=== PATIENT | female | born 1950 | race Caucasian/White ===

== ENCOUNTER → 2019-03-13 09:27 | Outpatient (CLI) | payer MEDICARE, OTHER, SELFPAY ==
--- NOTE | 2019-03-13 10:00 | RAD_ITS ---
STUDY: AIR CONTRAST UPPER GI SERIES REASON FOR EXAM: Female, 68 years old. Dysphagia. FLUOROSCOPY TIME (if supplied): (1:01) minutes/seconds TECHNIQUE: SINGLE CONTRAST AND AIR CONTRAST FLUOROSCOPIC IMAGES. COMPARISON: None. FINDINGS: The cervical esophagus demonstrates normal motility without aspiration. There is no stricture or extrinsic mass effect. No intraluminal polypoid mass is identified. The thoracic esophagus distends well without stricture or mucosal fold thickening. No mucosal ulcerations are identified. There is no extrinsic mass effect. There are no diverticula. No hiatal hernia or gastroesophageal reflux was identified. The stomach distends well without mucosal fold thickening or mucosal ulceration. There is no intraluminal mass. The duodenal bulb is freely distensible without deformity or ulceration. The duodenal sweep is normal in position and caliber. RAD/Upper GI w/BA Swallow IMPRESSION: Normal air-contrast upper GI series. Electronically Signed: Bennie Stern, at 9:21 EDT , Service support ,
== END ==
PROVIDERS: Family Provider Family Medicine; PCP Family Medicine; Referring Provider Family Medicine; Visit Provider Family Medicine
DX: R13.10 Dysphagia, unspecified (principal)
CPT/HCPCS: 74246

== ENCOUNTER → 2019-03-14 11:25 | Outpatient (CLI) | payer MEDICARE, OTHER, SELFPAY ==
[2019-03-14 12:46] LABS: Absolute Lymphocyte Count 1.38 X10^3/ul (0.83-4.51); Basophil# 0.02 X10^3/uL; Basophil% 0.4 % (0-1); Eosinophil# 0.23 X10^3/uL; Eosinophils% 4.4 % (0-5); Hematocrit 48.4 % (37-47); Hemoglobin 16.4 g/dl (12.0-15.0); Lymphocyte # 1.38 X10^3/ul (4.0); Lymphocyte % 26.4 % (19-41); Mean Corp Hgb Conc 33.9 g/gl (32-36); Mean Corpuscular Hgb 28.9 pg (27.0-32.0); Mean Corpuscular Volume 85.2 fL (81-99); Mean Platelet Vol. 10.2 fl (6.2-12.0); Monocyte# 0.63 X10^3/uL; Neutrophil # 2.96 X10^3/uL (2.7-7.7); Neutrophil % 56.6 % (47-70); Platelet Count 235 K/mm3 (150-450); RBC Distribution Width CV 14.8 % (11.6-14.6); Red Blood Count 5.68 M/mm3 (4.2-5.4); White Blood Count 5.2 K/mm3 (4.4-11.0)
[2019-03-14 12:58] LABS: POSITIVE COUNT NO; POSITIVE DIFFERENTIAL NO; POSITIVE MORPHOLOGY NO
[2019-03-14 13:14] LABS: AST(SGOT) 19 U/L (15-37); Alanine Aminotransfer ALT/SGPT 29 U/L (13-56); Albumin, Serum 3.4 g/dL (3.2-5.0); Alkaline Phosphatase 52 U/L (45-117); Anion Gap 3 (5-15); BUN 25 mg/dL (7-18); BUN/Creat Ratio 31.2 RATIO (10-20); Calcium,Total 8.6 mg/dL (8.5-10.1); Chloride 101 mmol/L (98-107); Cholesterol 164 mg/dL (200); EST Glomerular Filtration Rate 76 mL/min (>60); Est Glom Filt Rate - Afr Amer 92 mL/min (>60); Globulin 3.5 g/dL (2.2-4.2); Glucose 84 mg/dL (74-106); High Density Lipoprotein 38 mg/dL; Potassium 3.7 mmol/L (3.5-5.1); Protein, Total 6.9 g/dL (6.4-8.2); Sodium Level 136 mmol/L (136-145); Triglycerides 57 mg/dL; Very Low Density Lipoprotein 11 mg/dL (5-40)
== END ==
PROVIDERS: Family Provider Family Medicine; PCP Family Medicine; Visit Provider Family Medicine
DX: I10 Essential (primary) hypertension (principal); Z51.81 Encounter for therapeutic drug level monitoring
CPT/HCPCS: 36415; 80053; 80061; 85025

== ENCOUNTER → 2019-04-09 15:42 | Outpatient (CLI) | payer MEDICARE, OTHER, SELFPAY ==
--- NOTE | 2019-04-09 15:46 | BI_ITS ---
MAMMOGRAPHY - BILATERAL SCREENING REASON FOR EXAM: Female, 68 years old. Routine annual screening examination. PERTINENT HISTORY: Non-contributory. TECHNIQUE: Digital bilateral breast jerrell (3D mammographic acquisition) in the CC and MLO projections. 2-D mediolateral oblique (MLO) and craniocaudad (CC) views of both breasts were obtained. CAD: Full Field Digital Mammography with Computer Added Detection was performed. COMPARISON: Comparison is made with prior study dated September 14, 2016 and August 12, 2015. FINDINGS: Breast Composition: There are scattered areas of fibroglandular density. There are no dominant masses or suspicious calcifications. No other significant abnormalities are identified. There has been no significant change since the prior study. BI/SCREEN MAMM (CAD) W/JERRELL BILAT IMPRESSION: Stable bilateral screening mammogram. Yearly follow-up mammogram recommended. (A) ASSESSMENT CATEGORY: BIRADS Category 1: Negative. A letter regarding these results will be sent to the patient by the facility within 30 days. Approximately 10% of breast cancers are not detected by mammography. A normal mammogram should not delay biopsy of a clinically suspicious abnormality. [id number] Electronically Signed: Bennie Stern, at 9:01 EDT , Service support ,
--- NOTE | 2019-04-09 15:51 | BD_ITS ---
STUDY: DUAL ENERGY X-RAY ABSORPTIOMETRY / DXA REASON FOR EXAM: Female, 68 years old. The patient is postmenopausal. Loss of height. TECHNIQUE: Bone Mineral Density (BMD) measurements of lumbar spine and bilateral hips were obtained. COMPARISON: None. FINDINGS: Lumbar Spine (L1-L4): g/cm2 (1.156) / T-score (-0.1) / Z-score (1.5) Findings are suggestive of normal bone density with a low fracture risk. Left Femur Total: g/cm2 (0.936) / T-score (-0.6) / Z-score (0.7) Left Femoral Neck: g/cm2 (0.794) / T-score (-1.8) / Z-score (-0.2) Right Femur Total: g/cm2 (0.894) / T-score (-0.9) / Z-score (0.4) Right Femoral Neck: g/cm2 (0.786) / T-score (-1.8) / Z-score (-0.3) BD/Dexa Bone Density Study IMPRESSION: The patient is considered osteopenic as outlined below according to World Eliseo Organization (WHO) criteria with a moderate fracture risk. Reference Information: The T-score is the number of standard deviations above or below the standard which is normal for young adults at their peak bone mineral density. The World Health Organization (WHO) interprets the T-scores as follows: Above -1 Normal bone density Between -1 and -2.5 Osteopenia Equal to / or below -2.5 Osteoporosis As a practical clinical guideline, osteopenia may be graded as follows: Mild -1 through -1.5 Moderate -1.6 through -2.0 Severe -2.1 through -2.4 The Z-score is the number of standard deviations above or below age-matched controls. A Z-score of less than -1.5 would be considered abnormal. References: 1. NIH Osteoporosis and Related Bone Diseases http://www.osteo.org 2. International Society for Clinical Densitometry http://www.iscd.org 3. National Osteoporosis Foundation http://www.nof.org Electronically Signed: Bennie Stern, at 12:47 EDT , Service support ,
== END ==
PROVIDERS: Family Provider Family Medicine; PCP Family Medicine; Referring Provider Family Medicine; Visit Provider Family Medicine
DX: M81.0 Age-related osteoporosis without current pathological fracture (principal); Z12.31 Encounter for screening mammogram for malignant neoplasm of breast
CPT/HCPCS: 77063; 77067; 77080

== ENCOUNTER → 2020-03-04 11:55 | Outpatient (CLI) | payer MEDICARE, OTHER, SELFPAY ==
--- NOTE | 2020-03-04 12:16 | RAD_ITS ---
STUDY: X-RAY - LEFT SHOULDER REASON FOR EXAM: Female, 69 years old. Nontraumatic worsening shoulder pain. TECHNIQUE: 4 view(s) of the shoulder. COMPARISON: Right shoulder, March 04, 2020. FINDINGS: There is moderate degenerative arthrosis of the glenohumeral articulation. There is minimal widening of the AC joint suggesting a Type I acromioclavicular joint separation. Normal acromion. There is no fracture or destructive osseous pathology. There is demineralization of the humerus and visualized osseous structures. The soft tissue structures are unremarkable. Normal visualized pulmonary apex. RAD/Shoulder min 2 Views IMPRESSION: 1. Arthrosis of the glenohumeral joint. 2. Mild widening of the acromioclavicular joint. Type I AC joint separation versus normal variant. Electronically Signed: Rahul Davis DO at 17:39 EDT Tel [phone], Service support ,
--- NOTE | 2020-03-04 12:16 | RAD_ITS ---
STUDY: X-RAY - RIGHT SHOULDER REASON FOR EXAM: Female, 69 years old. Worsening bilateral shoulder pain without injury. TECHNIQUE: 4 view(s) of the shoulder. COMPARISON: None. FINDINGS: There is moderate degenerative arthrosis of the glenohumeral articulation. Normal acromioclavicular joint. Normal acromion. There is no acute fracture, dislocation or destructive osseous pathology. There is demineralization of the humerus and visualized osseous structures. The soft tissue structures are unremarkable. Normal visualized pulmonary apex. 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 Electronically Signed: Rahul Davis DO at 17:42 EDT Tel [phone], Service support ,
[2020-03-04 15:40] LABS: Absolute Lymphocyte Count 1.26 X10^3/uL (0.83-4.51); Absolute Neutrophil Count 2.6 X10^3/uL (2.0-7.7); Basophil# 0.03 X10^3/uL; Basophil% 0.6 % (0-1); Eosinophil# 0.84 X10^3/uL; Eosinophils% 16.1 % (0-5); Hematocrit 50.3 % (37-47); Hemoglobin 16.3 g/dL (12.0-15.0); Lymphocyte # 1.26 X10^3/ul (4.0); Lymphocyte % 24.2 % (19-41); Mean Corp Hgb Conc 32.4 g/dL (32-36); Mean Corpuscular Hgb 28.5 pg (27.0-32.0); Mean Corpuscular Volume 87.9 fL (81-99); Mean Platelet Vol. 10.4 fl (6.2-12.0); Monocyte# 0.51 X10^3/uL; Monocyte% 9.8 % (0-10); NRBC Flagged by Analyzer 0 % (0-5); Neutrophil # 2.56 X10^3/uL (2.7-7.7); Neutrophil % 49.1 % (47-70); Platelet Count 268 K/mm3 (150-450); RBC Distribution Width SD 49.2 fl (35.1-43.9); Red Blood Count 5.72 M/mm3 (4.2-5.4); White Blood Count 5.2 K/mm3 (4.4-11.0)
[2020-03-04 15:42] LABS: ALB/GLOB Ratio 0.9 RATIO (0.9-2.4); AST(SGOT) 24 U/L (15-37); Alanine Aminotransfer ALT/SGPT 40 U/L (13-56); Albumin, Serum 3.6 g/dL (3.2-5.0); Alkaline Phosphatase 59 U/L (45-117); Anion Gap 4 (5-15); BUN 26 mg/dL (7-18); BUN/Creat Ratio 32.8 RATIO (10-20); Chloride 104 mmol/L (98-107); Cholesterol 178 mg/dL (200); Creatinine, Serum 0.79 mg/dL (0.55-1.02); EST Glomerular Filtration Rate 77 mL/min (>60); Est Glom Filt Rate - Afr Amer 93 mL/min (>60); Globulin 3.9 g/dL (2.2-4.2); Glucose 88 mg/dL (74-106); High Density Lipoprotein 30 mg/dL; Potassium 3.7 mmol/L (3.5-5.1); Protein, Total 7.5 g/dL (6.4-8.2); Sodium Level 139 mmol/L (136-145); Triglycerides 47 mg/dL; Very Low Density Lipoprotein 9 mg/dL (5-40); Vitamin D,25 Hydroxy 43.8 ng/mL
== END ==
PROVIDERS: PCP Family Medicine; Referring Provider Family Medicine; Visit Provider Family Medicine
DX: I10 Essential (primary) hypertension (principal); M25.511 Pain in right shoulder; M25.512 Pain in left shoulder; E55.9 Vitamin D deficiency, unspecified; Z51.81 Encounter for therapeutic drug level monitoring
CPT/HCPCS: 36415; 73030; 80053; 80061; 82306; 85025

== ENCOUNTER → 2020-04-02 14:20 | Outpatient (CLI) | payer MEDICARE, OTHER, SELFPAY ==
[2020-04-02 18:06] LABS: AST(SGOT) 21 U/L (15-37); Alanine Aminotransfer ALT/SGPT 36 U/L (13-56); Albumin, Serum 3.4 g/dL (3.2-5.0); Alkaline Phosphatase 55 U/L (45-117); Bilirubin, Direct 0.18 mg/dL (0.00-0.30); Globulin 3.7 g/dL (2.2-4.2); Protein, Total 7.1 g/dL (6.4-8.2)
== END ==
PROVIDERS: PCP Family Medicine; Visit Provider Family Medicine
DX: Z51.81 Encounter for therapeutic drug level monitoring (principal)
CPT/HCPCS: 36415; 80076

== ENCOUNTER → 2020-07-24 12:53 | Outpatient (CLI) | payer MEDICARE, OTHER, SELFPAY ==
--- NOTE | 2020-07-24 13:17 | BI_ITS ---
MAMMOGRAPHY - BILATERAL SCREENING REASON FOR EXAM: Female, 70 years old. Routine annual screening examination. PERTINENT HISTORY: Non-contributory. TECHNIQUE: Digital bilateral breast jerrell (3D mammographic acquisition) in the CC and MLO projections. 2-D mediolateral oblique (MLO) and craniocaudad (CC) views of both breasts were obtained. CAD: Full Field Digital Mammography with Computer Added Detection was performed. COMPARISON: Comparison is made with prior study dated 04/09/2019 and 09/14/2016. FINDINGS: Breast Composition: There are scattered areas of fibroglandular density. There are no dominant masses or suspicious calcifications. No other significant abnormalities are identified. There has been no significant change since the prior study. BI/SCREEN MAMM (CAD) W/JERRELL BILAT IMPRESSION: Stable bilateral screening mammogram. Yearly follow-up mammogram recommended. (A) ASSESSMENT CATEGORY: BIRADS Category 1: Negative. A letter regarding these results will be sent to the patient by the facility within 30 days. Approximately 10% of breast cancers are not detected by mammography. A normal mammogram should not delay biopsy of a clinically suspicious abnormality. [id number] Electronically Signed: Bennie Stern, at 14:34 EST , Service support ,
== END ==
PROVIDERS: PCP Family Medicine; Referring Provider Family Medicine; Visit Provider Family Medicine
DX: Z12.31 Encounter for screening mammogram for malignant neoplasm of breast (principal)
CPT/HCPCS: 77063; 77067

== ENCOUNTER 2020-10-22 10:20 | Outpatient (RCR) | payer MEDICARE, OTHER, SELFPAY | END 2020-10-22 23:59 | LOC: IMMUN 10:20 | PROVIDERS: PCP Family Medicine; Referring Provider Family Medicine; Visit Provider Family Medicine | DX: Z23 Encounter for immunization (principal) | CPT/HCPCS: 0011A; 0012A ==

== ENCOUNTER 2024-08-31 18:23 | Emergency (ER) | payer MEDICARE, OTHER, SELFPAY ==
[2024-08-31 18:24] VITALS: BP 161/92; PULSE 83; RESP 16; TEMP 36.9; O2SAT 98
--- NOTE | 2024-08-31 20:00 | RAD_ITS ---
EXAM: XR RIGHT KNEE, 3 VIEWS CLINICAL INDICATION: injury TECHNIQUE: Three views of the right knee. COMPARISON: No relevant prior studies available. FINDINGS: BONES/JOINTS: Unremarkable. No acute fracture. No subluxation. Normal alignment. Preservation of the joint space. No sclerotic or destructive changes observed. SOFT TISSUES: Unremarkable. No soft tissue swelling or gas. No radiopaque foreign body. RAD/Knee 3 Views IMPRESSION: Negative right knee x-rays. Electronically Signed: Erick Pitts MD at 22:44 EST ,
--- NOTE | 2024-08-31 23:28 | ED.VIS.LOWEX ---
HPI History of Present Illness HPI Narrative: Patient presents with right knee pain that became worse tonight. Patient states that she had some pain in her knee earlier this week. Patient states she felt something moving in her knee. Patient states it moved back and her pain resolved. Patient states that tonight she bent down to change the qing litter and her pain began again. Patient describes it as burning. Patient states it is over the anterior medial aspect of the right knee. Patient states the pain is worse with movement and weightbearing. Patient denies any paresthesias or weakness. Patient denies any other injuries. Chief Complaint: Lower Extremity Injury Onset/Context/Timing Onset: Today Context: Sudden Onset Timing: Continuous Quality of Pain: Burning Location: Right knee Worsened by: Weightbearing, movement Relieved by: Nothing Associated Symptoms Associated Symptoms: Negative for Parasthesia or Weakness PFSH [facility] Medical History (Updated 08/31/24 @ 23:[address] Arben Hamilton, ) Hereditary angioedema Home Medications ?Medication ?Instructions ?Recorded ?Last Taken ?Type cholecalciferol (vitamin D3) 25 25 mcg PO DAILY 08/31/24 Unknown History mcg (1,000 unit) capsule (Vitamin D3) danazol 100 mg capsule 100 mg PO DAILY 08/31/24 Unknown History hydrochlorothiazide 25 mg tablet 25 mg PO DAILY 08/31/24 Unknown History hydrocodone-acetaminophen 5-325mg 1 tab PO Q6H PRN PRN Pain 3 days 08/31/24 Unknown Rx 5mg-325mg #10 TABLETS multivitamin (Daily Multi-Vitamin 1 tab PO DAILY 08/31/24 Unknown History tablet) Allergy/AdvReac Type Severity Reaction Status Date / Time No Known Allergies Allergy Verified 08/31/24 18:24 Surgical History (Updated 08/31/24 @ 23:[address] Arben Hamilton, ) Hx of endoscopy Hx of tubal ligation Social History Smoking Status: Never smoker ROS ROS ED Constitutional Constitutional ED: Denies chills or fever(s) Eyes Eyes: Denies blurry vision or change in vision ENT ENT ED: Denies rhinorrhea or sore throat Cardiovascular Cardiovascular: Denies chest pain or palpitations Respiratory/Chest Respiratory/Chest: Denies cough or dyspnea Gastrointestinal Gastrointestinal: Denies nausea or vomiting Genitourinary Genitourinary ED: Denies dysuria or hematuria Musculoskeletal Musculoskeletal: Denies back pain or neck pain Integumentary Denies abscess or rash Neurologic Neurologic: Denies headache(s) or weakness Allergic/Immunologic Allergic/Immunologic ED: Denies mouth swelling or urticaria EXAM Physical Exam Const Vital Signs: 08/31/24 18:24 Temperature 98.5 F Temperature Source Oral Pulse Rate 83 Respiratory Rate 16 Blood Pressure 161/92 H Blood Pressure Mean 115 Pulse Ox 98 Oxygen Delivery Method Room Air Positive well nourished and well developed General Appearance ED: well developed and NAD HEENT Reports moist mucous membranes Neck full ROM and supple Extremity Extremity Narrative: There is tenderness over the anterior medial aspect of the right knee. There is no bony crepitance or step-off. There is no effusion noted. Range of motion was slightly limited in all motions of the right knee secondary to pain. There is some mild pain with valgus testing but there is no laxity appreciated. There is some mild pain over the medial joint line of the right knee with Urmila testing. Strength is 5/5 bilaterally in the lower extremities. Extensor mechanism is intact. There are no sensory deficits noted. Pedal pulses are equal bilaterally. Neuro oriented x3, CN's II-XII intact bilaterally, moves all extremities and no sensory deficits noted Sensorium / Orientation: alert Motor Exam: strength 5/5 throughout Psych mental status grossly normal MDM MDM MDM Narrative Medical decision making narrative: Differential diagnose includes fracture, sprain, meniscus injury, and contusion. X-rays of the right knee will be obtained to assess for fracture and joint effusion. Radiography Diagnostic Testing: Clinical Impression(s) from Imaging Studies Knee X-Ray 08/31/24 20:00 IMPRESSION: Negative right knee x-rays. Electronically Signed: Erick Pitts MD at 22:44 EST Reading Location ID and State: [address] [place] [address] Tel , Service support , X-rays of the right knee were obtained. There are 3 views. On my independent interpretation, there is no acute fracture. There is no joint effusion noted. Radiologist also interpreted the x-rays and agrees. Treatment and Re-Evaluation Narrative: Patient was advised of her findings. Patient was given a dose of Gresham here. Patient was given a prescription for a short course of Gresham. Patient was instructed to ice and elevate the right knee. Patient was instructed to use her walker as needed to help with weightbearing. Patient was instructed to follow-up with her primary care physician as scheduled. Patient understood and was agreeable with the plan. All questions were answered. Discharge Plan Triage Chief Complaint: Lower Extremity Injury ED Provider: Arben Hamilton Dx/Rx/DC Orders Clinical Impression: Right knee sprain, Hypertension Instructions: ED Meniscal Injury Knee Poss, ED Knee Sprain Prescriptions: New hydrocodone-acetaminophen 5-325 mg tablet 1 tab PO Q6H PRN PRN (Reason: Pain) 3 Days Qty: 10 0RF No Action danazol 100 mg capsule 100 mg PO DAILY cholecalciferol (vitamin D3) [Vitamin D3] 25 mcg (1,000 unit) capsule 25 mcg PO DAILY multivitamin [Daily Multi-Vitamin] Tablet 1 tab PO DAILY hydrochlorothiazide 25 mg tablet 25 mg PO DAILY Primary Care Provider: Fish Ortiz Referrals: Fish Ortiz, [Primary Care Provider] - Keep [facility] appointment Print Language: Sinhala Disposition Disposition: Home, Self Care
[2024-08-31] MEDS: HYDROcodone Bitartrate/Apap 5/325 Tablet PO (23:47)
[2024-09-01] VITALS: BP 141/79; PULSE 89; RESP 16; TEMP 36.6; O2SAT 99
== END 2024-09-01 00:01 | disposition home or self-care (01) ==
PROVIDERS: Emergency Provider Emergency Medicine; PCP Family Medicine; Visit Provider Emergency Medicine
DX: S83.91XA Sprain of unspecified site of right knee, initial encounter (principal); I10 Essential (primary) hypertension; X58.XXXA Exposure to other specified factors, initial encounter
CPT/HCPCS: 73562; 99283

== ENCOUNTER → 2024-09-24 | Outpatient (CLI) | payer MEDICARE, OTHER, SELFPAY ==
[2024-09-24 17:37] LABS: Absolute Lymphocyte Count 1.33 X10^3/uL (0.83-4.51); Absolute Neutrophil Count 2.5 X10^3/uL (2.0-7.7); Basophil# 0.04 X10^3/uL; Basophil% 0.9 % (0-1); Eosinophil# 0.18 X10^3/uL; Eosinophils% 3.9 % (0-5); Hemoglobin 15.3 g/dL (12.0-15.0); Lymphocyte # 1.33 X10^3/ul (0.83-4.51); Lymphocyte % 28.7 % (19-41); Mean Corp Hgb Conc 32.6 g/dL (32-36); Mean Corpuscular Hgb 28.4 pg (27.0-32.0); Mean Corpuscular Volume 87.4 fL (81-99); Mean Platelet Vol. 9.6 fl (6.2-12.0); Monocyte# 0.55 X10^3/uL; Monocyte% 11.9 % (0-10); NRBC Flagged by Analyzer 0 % (0-5); Neutrophil # 2.52 X10^3/uL (2.7-7.7); Neutrophil % 54.4 % (47-70); Platelet Count 474 K/mm3 (150-450); RBC Distribution Width SD 45.1 fl (35.1-43.9); Red Blood Count 5.38 M/mm3 (4.2-5.4); White Blood Count 4.6 K/mm3 (4.4-11.0)
[2024-09-24 17:51] LABS: Vitamin D,25 Hydroxy 62.4 ng/mL
[2024-09-24 19:01] LABS: ALB/GLOB Ratio 0.7 RATIO (0.9-2.4); AST(SGOT) 23 U/L (15-37); Alanine Aminotransfer ALT/SGPT 39 U/L (13-56); Albumin, Serum 3.1 g/dL (3.2-5.0); Alkaline Phosphatase 51 U/L (45-117); Anion Gap 8 (5-15); BUN 28 mg/dL (7-18); BUN/Creat Ratio 33.9 RATIO (10-20); Calcium,Total 9.6 mg/dL (8.5-10.1); Chloride 102 mmol/L (98-107); Cholesterol 188 mg/dL (200); Creatinine, Serum 0.82 mg/dL (0.55-1.02); EST Glomerular Filtration Rate 72 mL/min (>60); Est Glom Filt Rate - Afr Amer 88 mL/min (>60); Globulin 4.7 g/dL (2.2-4.2); Glucose 91 mg/dL (74-106); High Density Lipoprotein 26 mg/dL; Potassium 3.9 mmol/L (3.5-5.1); Protein, Total 7.8 g/dL (6.4-8.2); Sodium Level 140 mmol/L (136-145); Triglycerides 98 mg/dL; Very Low Density Lipoprotein 20 mg/dL (5-40)
== END | disposition home or self-care (01) ==
LOC: BFHLAB 14:40
PROVIDERS: PCP Family Medicine; Referring Provider Family Medicine; Visit Provider Family Medicine
DX: I10 Essential (primary) hypertension (principal); E55.9 Vitamin D deficiency, unspecified
CPT/HCPCS: 36415; 80053; 80061; 82306; 85025

== ENCOUNTER 2024-10-01 09:04 | Day surgery (SDC) | payer MEDICARE, OTHER, SELFPAY ==
[2024-10-01] VITALS (9 sets, daily range): BP systolic 118–146; BP diastolic 68–96; PULSE 73–88; RESP 14–20; TEMP 36–36.6; O2SAT 94–100; BMI 23.6
[2024-10-01] MEDS: 0.9% Normal Saline (1000mL) 1,000 ML 15 ML IV (09:27)
--- NOTE | 2024-10-01 09:41 | PCM.PRE.AN2 ---
ASA Classification* ASA Classification ASA Classification: 2 Assessment & Plan Anesthesia* Anesthesia Assessment Anesthesia Assessment: Discussed sedation and/or anesthesia options, risks, benefits, and alternatives with patient/parents/legal guardian/POA. Questions invited. The patient/parents/legal guardian/POA seems to understand and agrees to proceed with anesthesia plan. Reviewed the physical assessment, medical history, allergy history and patient home medications list prior to surgery/procedure/anesthetic and documented any changes. Performed airway and anesthesia risk assessments. Anesthesia Type Anesthesia Type: General History Source History Obtained from:: Patient and Chart Anesthesia Focused Assessment* Temperature: 98 F Pulse Rate: 88 Blood Pressure: 126/68 Respiratory Rate: 16 Pulse Ox: 100 Oxygen Delivery Method: Room Air Airway Assessment Mouth opens: >3 cm Mallampati Score: II Teeth Condition: Intact Neck Range of motion (ROM): Limited ROM (Slight decrease in extension) Focused Labs Anesthesia Preop lab: CBC WBC 4.6 K/mm3 (4.4-11.0) 09/24/24 14:40 RBC 5.38 M/mm3 (4.2-5.4) 09/24/24 14:40 Hgb 15.3 g/dL (12.0-15.0) H 09/24/24 14:40 Hct 47.0 % (37-47) 09/24/24 14:40 Plt Count 474 K/mm3 (150-450) H 09/24/24 14:40 CHEMISTRY Potassium 3.9 mmol/L (3.5-5.1) 09/24/24 14:40 Sodium 140 mmol/L (136-145) 09/24/24 14:40 BUN 28 mg/dL (7-18) H 09/24/24 14:40 Creatinine 0.82 mg/dL (0.55-1.02) 09/24/24 14:40 Glucose 91 mg/dL (74-106) 09/24/24 14:40 TSH 2.41 uIU/mL (0.358-3.74) 04/29/17 10:21 COAG Pre-Assessment Diagnosis/Proposed Procedure Planned Operative Procedure(s): (R) Right knee Arthroscopy, partial medial and lateral menisectomy Anesthesia History Anesthesia History - contract analyst: Anesthesia History - contract analyst Hx Hospitalization No 09/24/24 13:11 Any Problems With Anesthesia No 09/24/24 13:11 Cholinesterase deficiency No 09/24/24 13:11 You/Your Family Experience No 09/24/24 13:11 fever (hyperthermia) with Relationship Recent Exposure to Contagious No 10/01/24 09:19 Disease Does patient have nerve No 09/24/24 13:11 stimulator Patient instructed to have device shut off --Does patient have Pacemaker No 10/01/24 09:19 or ICD? When Was Last Pacemaker Check QUESTION #4 FULL TEXT: You/Your Family Experience fever (hyperthermia) with Anesthesia Last Oral Intake Last Oral intake: Last Oral Intake NPO since 00:00 10/01/24 09:19 Meds taken in AM with sips of water? Meds patient instructed to take am of surgery PONV PONV - contract analyst: PONV - contract analyst Female Yes 09/24/24 13:11 HX of Motion Sickness No 09/24/24 13:11 HX of N/V After Surgery No 09/24/24 13:11 Non-Smoker Yes 09/24/24 13:11 Duration of Surgery greater No 09/24/24 13:11 than 60 minutes Number of Risk Factors 2 09/24/24 13:11 PONV Score Moderate Risk 09/24/24 13:11 Height & Weight Height & Weight: Anesthesia: Height & Weight Height 4 ft 11 in 10/01/24 09:19 Weight: 53.07 kg 10/01/24 09:19 Body Mass Index (BMI) 23.6 10/01/24 09:19 Respiratory Assessment Respiratory Assessment - contract analyst: Respiratory Tract Infection Hx - contract analyst Hx Respiratory Tract Infection No 09/24/24 13:11 STOP Sleep Apnea STOP Sleep Apnea - contract analyst: STOP Sleep Apnea - contract analyst Hx Hypertension Yes: CONTROLLED WITH MED 09/24/24 13:11 Hx Sleep Apnea Yes 09/24/24 13:11 CPAP No 09/24/24 13:11 BIPAP Yes: NON COMPLIANT 09/24/24 13:11 Do you snore loudly (louder than talking or can be heard Do you often feel tired/ fatigued/ sleepy during daytime? Has anyone observed you stop breathing during sleep? STOP Results Positive 09/24/24 13:11 QUESTION #5 FULL TEXT : Do you snore loudly (louder than talking or can be heard through closed doors)? 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 Specify any problems Hx of Preganancy in last 3 N/A 09/24/24 13:11 Months Nurse Filling Out Transfusion NBUCHER 09/24/24 13:11 & Questions: Date: 09/24/24 09/24/24 13:11 Time: 13:13 09/24/24 13:11 Patient unable to answer at this time (ie. confused, unrespo /Reproduction History /Reproductive History - contract analyst: /Reproductive Hx- contract analyst Hx Now No 09/24/24 13:11 Gestational Age (in weeks): EDC: Hx Hx Para Hx Section SAB No 09/24/24 13:11 Active Medications Active Medications: Current Medications Generic Name Dose Route Start Last Admin Trade Name Freq PRN Reason Stop Dose Admin Cefazolin Sodium 2 gm/ N/A 20 mls @ 400 mls/hr 10/01/24 10:45 IV 10/01/24 10:47 PREOP ONE Sodium Chloride 1,000 mls @ 15 mls/hr 10/01/24 09:10 10/01/24 09:27 IV 10/06/24 22:29 15 mls/hr .Q48H KERRIE Administration Protocol [facility] Medical History Wears glasses Arthritis BiPAP (biphasic positive airway pressure) dependence Sleep apnea Non-smoker History of edema Hereditary angioedema Home Medications ?Medication ?Instructions ?Recorded ?Last Taken ?Type cholecalciferol (vitamin D3) 25 25 mcg PO DAILY 08/31/24 09/30/24 History mcg (1,000 unit) capsule (Vitamin D3) danazol 100 mg capsule 100 mg PO DAILY 08/31/24 09/30/24 History hydrochlorothiazide 25 mg tablet 25 mg PO DAILY 08/31/24 09/30/24 History multivitamin (Daily Multi-Vitamin 1 tab PO DAILY 08/31/24 09/30/24 History tablet) Allergy/AdvReac Type Severity Reaction Status Date / Time No Known Allergies Allergy Verified 10/01/24 09:18 Surgical History History of local excision of skin lesion History of wisdom tooth extraction History of esophagogastroduodenoscopy (EGD) History of colonoscopy Hx of endoscopy Hx of tubal ligation Social History household members: spouse Smoking Status: Never smoker Review of Systems (Anesthesia) ROS Narrative System reviewed and no additional complaints, except as documented.
--- NOTE | 2024-10-01 09:51 | PCM.HP.BLA ---
History and Physical Date of Admission: 10/01/24 [facility] [address] [place] [address] OFFICE VISIT Date of Service: 09/18/24 MR#: [id number] Acct: [id number] Name: JENNIFFER CASTRO Rep #: [id number] : 1950 Provider: Dr. Stanislav Watts DO Age/Sex: 74/F Location: [facility] [place] Status: Signed Intake Vital Signs 08/31/2418:24 09/18/2507:42 Height 4 ft 11 in 4 ft 11 in Weight: 122 lb BMI 24.6 Intake Visit Reasons: RIGHT KNEE Accompanied by: Is patient in pain?: Yes Pain scale (1-10): 5 Allergies No Known Allergies Allergy (Verified 09/18/24 08:43) Medications ?Medication ?Instructions ?Recorded ?Confirmed ?Type cholecalciferol (vitamin D3) 25 25 mcg PO DAILY 08/31/24 09/18/24 History mcg (1,000 unit) capsule (Vitamin D3) danazol 100 mg capsule 100 mg PO DAILY 08/31/24 09/18/24 History hydrochlorothiazide 25 mg tablet 25 mg PO DAILY 08/31/24 09/18/24 History hydrocodone-acetaminophen 5-325mg 1 tab PO Q6H PRN PRN Pain 3 days 08/31/24 09/18/24 Rx 5mg-325mg #10 TABLETS multivitamin (Daily Multi-Vitamin 1 tab PO DAILY 08/31/24 09/18/24 History tablet) Have you fallen in the past year?: Yes PFSH Medical History Hereditary angioedema Surgical History (Updated 08/31/24 @ 23:[address] Arben Hamilton DO) Hx of endoscopy Hx of tubal ligation Social History (Updated 09/18/24 @ 09:12 by Yulisa Bledsoe) household members: spouse Smoking Status: Never smoker HPI RIGHT KNEE Details: This documentation accurately reflects the service provided and the decisions made by me, Dr. Stanislav Watts DO 09/18/24 0746. Part of today?s visit was documented by [ ], acting as scribe. JENNIFFER CASTRO is a 74 year old F new patient for right knee pain. Patient notes that she has had pain about a week prior to [place] and she felt like a tendon was flipping over a bone. She notes that she had crunching at that time. Patient went to the ER due to a locking in her knee. She then saw her PCP for a followup who ordered an MRI and had her MRI on 09/03/24. Patient notes that she was getting out of bed on 09/12/24 and her knee gave out. Patient notes that she then fell on 09/14/24 because her crutches slipped, and she got a black eye. Patient notes that her pain is over her medial knee. She has swelling into her right leg. Patient states that she no longer has the popping and clicking but believes it is from the swelling. She denies any instability at this time. She continues to use crutches. Patient denies any injections, bracing or physical therapy. She states that she is taking ibuprofen for pain. She was given norco by the ER doctor which she has used as well. She states that she also flared up her sciatica as well which is better now. Patient denies smoking or drug use ER visit 08/31/2024: According to ER record Patient states that she had some pain in her knee earlier this week. Patient states she felt something moving in her knee. Patient states it moved back and her pain resolved. Patient states that tonight she bent down to change the qing litter and her pain began again. She was given a prescription for Liberty and a walker . Ortho Exam General General: Yes no acute distress and No well groomed (Strong odor of possible animal such as cat) Neurologic: Yes alert and Yes oriented x3 Psychologic: Yes reasonable and appropriate Right Knee Skin/Wound: No erythema, No ecchymosis and Yes swelling Homans Sign: No Knee ROM: No ROM-Extension -20 to 0 (3) and Yes ROM-Flexion 0-140 (120) Examination: No Med jt line tenderness, No Lat jt line tenderness, No Pain with flexion, No Pain with extention and Yes Urmila's Test Stability: NML: Anterior Drawer, NML: Posterior Drawer, NML: Valgus 0, NML: Valgus 30, NML: Varus 0 and NML: Varus 30 Patella Translation: 1 KNEE: no collateral instability mild edema in lower leg Left Knee Patella Translation: 1 Constitutional: Well-developed; well-nourished; in no acute distress Eyes: No jaundice ENT: Nares patent; no obvious deformity Cardiovascular: No cyanosis; clubbing; or edema Lymphatic: No adenopathy in area of examination Skin: No rashes or lesions in the area of examination and intact Neurologic: Alert and oriented x 3 Psychiatric: Mood and affect appropriate Supplemental Info 09/18/2024 notch view and sunrise right knee: These views were absent on previous study they do show more spurring of the medial femoral condyle on the notch view low-grade chondrocalcinosis 09/03/2024 MRI on disc [facility]: Chondral thinning and fissuring of the weightbearing medial femoral compartment grade 1 chondral fraying of the lateral compartment. Pseudo extrusion of the medial meniscus with complex tear of the anterior body to posterior root. Chronic tear anterior horn body of lateral meniscus. Capsulitis. Edema deep to the iliotibial band. 08/31/2024 x-ray right knee 3 view: There is mild narrowing of the medial compartment on both AP and flexion view early spurring medial tibial plateau. Coding Level of Care Code Off vis,new,level 3 Diagnoses Complex tear of medial meniscus of right knee as current injury, initial encounter S83.231A Tear current or old: current Encounter type: initial encounter Meniscus tear of knee type: complex Acute lateral meniscus tear of right knee, initial encounter S83.281A Encounter type: initial encounter Assessment and Plan Assessment and Plan (1) Tear of medial meniscus of right knee: Status: Acute Qualifiers: Tear current or old: current Encounter type: initial encounter Meniscus tear of knee type: complex Qualified Code(s): S83.231A - Complex tear of medial meniscus, current injury, right knee, initial encounter (2) Acute lateral meniscus tear of right knee: Status: Acute Qualifiers: Encounter type: initial encounter Qualified Code(s): S83.281A - Other tear of lateral meniscus, current injury, right knee, initial encounter Orders: Orders Knee 1 or 2 Views Today M25.561 - Pain in right knee Plan Spoke to patient that she does have a posterior horn complex medial meniscus as well as an anterior horn lateral meniscus tear as well as some arthritis in the knee as well as findings on MRI of some inflammation of her distal IT band. Recommend a partial medial and lateral meniscectomy . Spoke to patient that this is about a 30-minute procedure. She cannot take any NSAID 7 days prior to surgery. She will use crutches for a few days after surgery to make sure that her knee does not buckle but will be weightbearing as tolerated. Explained that surgically there is nothing we can do with the arthritis she does have in the knee or for the IT band issues she has been dealing with. Will make sure to get a clearance from her PCP due to the hereditary angioedema that she is diagnosed with. Due to her dealing with this diagnosis she may have increased swelling after surgery. Tentative surgery date 10/01/2024 Follow up in an as needed basis or sooner if pain, swelling, numbness or associated symptoms, or concerns develop. All questions answered. Patient in agreement of plan. Clinical Quality Measures Falls Risk Screening/Assistive Devices Have you fallen in the past year?: Yes I have examined the patient and the H&P has been reviewed. There are no clinical changes since date of exam.
--- NOTE | 2024-10-01 10:45 | SYN_PTH ---
PATIENT: JENNIFFER CASTRO [place] [facility] [id number] AGE/SX: 74/F ROOM: RE10/01/[address]: Dr. Stanislav Watts DO : 1950 BED: DIS: 10/01/2024 SPEC #: [id number] RECD: 10/01/24 12:19 STATUS: GAGE RADHA #: [id number] REZA: 10/01/24 10:[address]: Stanislav Watts DEPT: SURGICAL PATHOLOGY RECD BY: Natasha Gilbert ENTERED: 10/01/24 13:01 SP TYPE: SYNOVIUM OTHR DR: Dr. Fish Ortiz DO Tissues: Synovial tissue of joint, NOS Procedures: Surgery Specimen Level IV Imprint (control) HEADER OPERATION: Right knee arthroplasty, partial medial and lateral PRE-OP DIAGNOSIS: Tear of medial meniscus of right knee TISSUE SUBMITTED: Right knee soft tissue and crystals MICROSCOPIC DIAGNOSIS Right knee soft tissue and crystals: A piece of fibroadipose tissue, fibroconnective tissue and reactive synovial tissue. See comment. 10/02/2024 COMMENT Touch imprint evaluation for crystals: Negative for crystals. Correlation with clinical findings and appropriate follow up are necessary. MICROSCOPIC DESCRIPTION Slides are reviewed. GROSS DESCRIPTION Received in fixative is one container labeled with the patient's name and designated Right knee soft tissue and crystals. The specimen consists of a piece of soto-yellow adipose tissue measuring 0.5 x 0.3 x 0.1cm. one touch imprint is prepared for crystal examination. The entire specimen is submitted in one cassette. 10/01/2024 TC:5 CPT:93943,20145
[2024-10-01] MEDS: Epinephrine (1 mg/ml) 1 MG/ML VIAL (10:48)
[2024-10-01] MEDS: Cefazolin 2 GM in Syringe IV (11:00)
[2024-10-01] MEDS: Lidocaine 1% /Epi 1:100 (20ml) 20 ML Vial (11:13)
[2024-10-01] MEDS: MethylPREDNISolone Acetate 40 MG/ML Vial (11:38)
--- NOTE | 2024-10-01 11:44 | OP.PCM_ITS ---
Operative Report (Standard) Operative Information Date of Procedure: 10/01/24 Pre-Operative Diagnosis: Right knee medial and lateral meniscus tear Post-Operative Diagnosis: Same Surgery/Procedure Performed: Arthroscopic right knee partial medial partial lateral meniscectomy and synovial biopsy credit card interviewer: Yes Professor Of Environmental Engineering: Raul Clifton Tasks completed by first line supervisor: Opening & closing Type of Anesthesia: General RN Documented Start/Stop Times: Operation Date: 10/01/24 10:45 Case Time Into Pre-Op 10/01/24 09:06 Out of Pre-Op 10/01/24 10:46 Anesthesia Start 10/01/24 10:48 Into Room 10/01/24 10:48 Procedure Start 10/01/24 11:13 Procedure End 10/01/24 11:43 Procedure Start Time: 11:13 Procedure Stop Time: 11:43 Select all DRAINS/GRAFTS/IMPLANTS that apply: None Estimated Blood Loss: 5 Specimen collected: Yes Description of specimen(s) removed: Meniscus and synovial tissue for crystal analysis Description of surgery: Preop diagnosis: Right knee posterior horn and body medial meniscus tear anterior horn and body lateral meniscus tear Postoperative diagnosis: Same Procedure: Left knee arthroscopic partial medial partial lateral meniscectomy biopsy of synovium and meniscus Anesthesia: General Estimated blood loss: 5 mL Tourniquet time: 28 minutes 300 mmHg Complications: none Specimens synovium and meniscus shavings for crystal analysis Indication for procedure: 74-year-old female patient who has had ongoing mechanical knee pain did have an MRI with evidence of medial lateral meniscus tear the patient did wish to proceed with an elective arthroscopic surgery to attempt to alleviate the symptoms. Risk benefits and alternatives of the procedure were reviewed including risk of bleeding infection nerve artery tissue damage need for further surgery continued pain and expected postoperative course. Procedure: The patient was met in the preoperative holding area. The operative extremity was identified by both patient and physician and family and marked. Patient was brought back to the operating room on a wheeled cart and transferred to the operating table in the supine position. Anesthesia was started. A well- padded tourniquet was placed on the operative extremity. A lower extremity leg bess was secured to the operative extremity. The contralateral extremity was well-padded and the end of the bed was flexed to 90 degrees. The patient was prepped and draped in the usual sterile fashion. A timeout was called to ensure the proper patient, procedure, and extremity were being contemplated. 0.5% Marcaine with epinephrine was injected into the planned incisional areas under the skin only. An Esmarch was used to exsanguinate the extremity and the tourniquet was inflated. An 11 blade scalpel was used to make a stab incision in the anterior lateral portal. The arthroscope was inserted into the intercondylar notch and inflow and outflow tubes were attached. Arthroscopic visualization began. The medial compartment was entered. An 18-gauge spinal needle was used to establish the placement for anterior medial portal. An 11 blade scalpel was used to make a stab incision. Blunt probe was inserted followed by a meniscal probe. Immediately there was noted a complex degenerative tearing of the medial meniscus body and horn with the use of arthroscopic biting instruments and a shaver and ArthroCare wand partial medial meniscectomy was performed the ACL was found to be intact. The lateral compartment was entered complex tearing of the anterior horn and body and had a degenerative appearance with also some either crystal deposition or remnant of steroid injection with use of arthroscopic shaver filter we did collect some of the meniscal and soft tissue and sent it for crystal analysis with the use of arthroscopic biting instruments and lydia and ArthroCare wand a partial lateral meniscectomy was performed. The arthroscope was switched to the medial portal to complete the procedure. The medial and lateral gutters were inspected and were free of loose bodies. The patellofemoral joint was inspected and was consistent with grade 2 cartilage softening throughout the knee with some areas of grade 3. There was good patellar tracking. The knee was thoroughly irrigated and drained. An intra-articular injection with 5 cc 0.5% Marcaine plain and 40 mg of Depo-Medrol was injected intra-articularly. The arthroscope was removed the portals were closed with 3-0 nylon arthroscopic stitches. Followed by Xeroform 4 x 4's ABDs web roll and an Gera wrap. The tourniquet was let down and the drapes were removed. All counts were correct. The patient was brought back to the PACU in stable condition. Surgical Findings: As above Complications Complications: No
--- NOTE | 2024-10-01 11:49 | EX.PCM.DISCH ---
Discharge Instructions Diet Discharge Diet: No restrictions Activity Weight Bearing Status: Full weight bearing Dressing / Incision Call your doctor if you observe: Shortness of breath and Chest pain Additional Dressing/Incision Instructions:: Ice and elevate next 72 hours .keep dressing on clean and dry for 48 hours then may remove begin showering daily but do not submerge in tub or pool. After shower may apply Band-Aids . Encourage knee range of motion weightbearing as tolerated, use crutches until confident in knee then may discontinue. No strenuous activity. When not ambulating keep iced and elevated next 72 hours. Do not mix pain medication with recreational drugs or alcohol only take as prescribed can be addictive and abusive, call with any questions or concerns. Follow Up Care Please Follow Up With: Stanislav Watts DO When: 2 weeks Test Results: Test results from this visit will be discussed in further detail at your follow-up appointment, if applicable. Discharge Plan Admission Primary Reason for Your Visit: Right knee arthroscopy Attending Provider: Stanislav Watts Primary Care Provider: Fish Ortiz Instructions Print Language: Hebrew Discharge Orders/Prescriptions Prescriptions: New oxycodone 5 mg tablet 5 - 10 mg PO Q4H PRN (Reason: pain) 7 Days Qty: 20 0RF Continued danazol 100 mg capsule 100 mg PO DAILY cholecalciferol (vitamin D3) [Vitamin D3] 25 mcg (1,000 unit) capsule 25 mcg PO DAILY multivitamin [Daily Multi-Vitamin] Tablet 1 tab PO DAILY hydrochlorothiazide 25 mg tablet 25 mg PO DAILY Referrals / Follow Up: Fish Ortiz DO [Primary Care Provider] - Disposition Disposition (needs filled in before D/C Order can be placed): Home, Self Care
--- NOTE | 2024-10-01 11:54 | PCM.POST.ANE ---
Anesthesia: Postop Eval I Current Vital Signs Temperature: 96.8 F Pulse Rate: 78 Blood Pressure: 146/96 Respiratory Rate: 20 Pulse Ox: 99 Assessment Airway patent: Yes Spontaneous unlabored respirations: Yes nausea: No Vomiting: No Anesthesia Complication: No Fluid Hydration Crystalloid volume administer (ml): 900 Total IV fluid infused: 900 Progress Note Anesthesia document: Postop Eval 1 completed: Yes
[2024-10-01] MEDS: Bupivacaine 0.5% PF 10 ML VIAL (12:07)
[2024-10-01] MEDS: Cefazolin 1 GM/50 ML BAG IV (13:47)
--- NOTE | 2024-10-01 22:56 | POSTOPAN2_ITS ---
Anesthesia Postop Eval I Sum Postop Eval Completion status Anesthesia document: Postop Eval 1 completed: Yes Anesthesia Postop Eval I Summary Anesthesia Postop Eval I Summary: Anesthesia Postop Eval I: Assessment Summary Airway patent Yes 10/01/24 11:54 TOOTH CUTTER [email or web address] Spontaneous unlabored Yes 10/01/24 11:54 TOOTH CUTTER [email or web address] respirations Mental status nausea No 10/01/24 11:54 TOOTH CUTTER [email or web address] Vomiting No 10/01/24 11:54 TOOTH [email or web address] [email or web address] Anesthesia Postop Eval I: Fluid Summary Crystalloid volume administer 900 10/01/24 11:54 TOOTH CUTTER [email or web address] (ml) Colloids volume administered ( ml) Blood Product volume administered (ml) Total IV fluid infused 900 10/01/24 11:54 TOOTH [email or web address] [email or web address] Anesthesia Postop Eval I: Summary Notes Anesthesia Complication No 10/01/24 11:54 TOOTH [email or web address] [email or web address] Anesthesia Complication Comment: Post-operative progress note Anesthesia: Postop Eval II Evaluation Mental status: Awake and Calm Pain Level: 1 nausea: No Vomiting: No Complications Anesthesia Complication: No
--- NOTE | 2024-10-01 22:56 | PCM.POSTANE2 ---
Anesthesia Postop Eval I Sum Postop Eval Completion status Anesthesia document: Postop Eval 1 completed: Yes Anesthesia Postop Eval I Summary Anesthesia Postop Eval I Summary: Anesthesia Postop Eval I: Assessment Summary Airway patent Yes 10/01/24 11:54 [email or web address] Spontaneous unlabored Yes 10/01/24 11:54 [email or web address] [email or web address] respirations Mental status nausea No 10/01/24 11:54 [email or web address] [email or web address] Vomiting No 10/01/24 11:54 [email or web address] Anesthesia Postop Eval I: Fluid Summary Crystalloid volume administer 900 10/01/24 11:54 [email or web address] (ml) Colloids volume administered ( ml) Blood Product volume administered (ml) Total IV fluid infused 900 10/01/24 11:54 [email or web address] Anesthesia Postop Eval I: Summary Notes Anesthesia Complication No 10/01/24 11:54 [email or web address] Anesthesia Complication Comment: Post-operative progress note Anesthesia: Postop Eval II Evaluation Mental status: Awake and Calm Pain Level: 1 nausea: No Vomiting: No Complications Anesthesia Complication: No
== END 2024-10-01 14:49 | disposition home or self-care (01) ==
LOC: SDC 09:05 → AC 09:10
PROVIDERS: PCP Family Medicine; Referring Provider Orthopaedic Surgery; Visit Provider Orthopaedic Surgery
PROC: (CPT 29870; principal; 2024-10-01 10:25)
DX: S83.241A Other tear of medial meniscus, current injury, right knee, initial encounter (principal); S83.281A Other tear of lateral meniscus, current injury, right knee, initial encounter; I10 Essential (primary) hypertension; G47.30 Sleep apnea, unspecified; W19.XXXA Unspecified fall, initial encounter; Z79.899 Other long term (current) drug therapy
CPT/HCPCS: 29880; 01400; 88305; J2405

== ENCOUNTER → 2024-10-25 | Outpatient (CLI) | payer MEDICARE, OTHER, SELFPAY ==
[2024-10-25 17:42] LABS: Absolute Lymphocyte Count 1.31 X10^3/uL (0.83-4.51); Basophil# 0.03 X10^3/uL; Basophil% 0.7 % (0-1); Eosinophil# 0.49 X10^3/uL; Eosinophils% 11.4 % (0-5); Hematocrit 45.4 % (37-47); Hemoglobin 14.7 g/dL (12.0-15.0); Lymphocyte # 1.31 X10^3/ul (0.83-4.51); Lymphocyte % 30.5 % (19-41); Mean Corp Hgb Conc 32.4 g/dL (32-36); Mean Corpuscular Hgb 28.1 pg (27.0-32.0); Mean Corpuscular Volume 86.6 fL (81-99); Mean Platelet Vol. 9.7 fl (6.2-12.0); Monocyte# 0.44 X10^3/uL; Monocyte% 10.2 % (0-10); NRBC Flagged by Analyzer 0 % (0-5); Neutrophil # 2.03 X10^3/uL (2.7-7.7); Neutrophil % 47.2 % (47-70); Platelet Count 389 K/mm3 (150-450); RBC Distribution Width CV 14.7 % (11.6-14.6); Red Blood Count 5.24 M/mm3 (4.2-5.4); White Blood Count 4.3 K/mm3 (4.4-11.0)
[2024-10-25 18:27] LABS: ALB/GLOB Ratio 0.7 RATIO (0.9-2.4); AST(SGOT) 22 U/L (15-37); Alanine Aminotransfer ALT/SGPT 29 U/L (13-56); Alkaline Phosphatase 63 U/L (45-117); Anion Gap 7 (5-15); BUN 23 mg/dL (7-18); BUN/Creat Ratio 26.8 RATIO (10-20); Calcium,Total 9.3 mg/dL (8.5-10.1); Chloride 102 mmol/L (98-107); Creatinine, Serum 0.86 mg/dL (0.55-1.02); EST Glomerular Filtration Rate 69 mL/min (>60); Est Glom Filt Rate - Afr Amer 84 mL/min (>60); Globulin 4.1 g/dL (2.2-4.2); Glucose 96 mg/dL (74-106); Potassium 3.9 mmol/L (3.5-5.1); Protein, Total 7.1 g/dL (6.4-8.2); Sodium Level 139 mmol/L (136-145)
[2024-10-29 16:08] LABS: Alpha-1-Globulins 0.3 g/dL (0.0-0.4); Alpha-2-Globulins 1.1 g/dL (0.4-1.0); Gamma Globulin 0.7 g/dL (0.4-1.8); Immunoglobulin A 160 mg/dL (64-422); Immunoglobulin G 960 mg/dL (586-1602); Immunoglobulin M 46 mg/dL (26-217); PROEL- TOTAL PROTEIN 6.3 g/dL (6.0-8.5)
== END | disposition home or self-care (01) ==
PROVIDERS: PCP Family Medicine; Visit Provider Family Medicine
DX: D69.6 Thrombocytopenia, unspecified (principal); R77.1 Abnormality of globulin
CPT/HCPCS: 36415; 80053; 82784; 84165; 85025; 86334

== ENCOUNTER → 2025-05-02 | Outpatient (CLI) | payer MEDICARE, OTHER, SELFPAY ==
--- NOTE | 2025-05-01 17:21 | BI_ITS ---
EXAM: SCRN MAMM (CAD)W/JERRELL BILAT DATE: 05/01/2025 CLINICAL HISTORY: F, Age 74 y/o , SCREENING No family history. TECHNIQUE: SCRN MAMM (CAD)W/JERRELL BILAT COMPARISON: Prior exam(s) dated July 24, 2020.. FINDINGS: TISSUE DENSITY: There are scattered areas of fibroglandular density. Bilateral Breast Mammographic Findings: No significant masses, calcifications or other abnormalities are identified. No suspicious masses, areas of developing architectural distortion, or suspicious calcifications. There has been no significant interval change. BI/SCRN MAMM (CAD)W/JERRELL BILAT IMPRESSION: Stable bilateral screening mammogram. OVERALL FINAL ASSESSMENT BI-RADS 1: NEGATIVE. RECOMMENDATION: Routine annual follow-up in 1 Year A letter with findings and recommendations will be mailed to the patient. Reading Location: [id number]
--- OUTSIDE RECORDS SUMMARY | 2025-05-02 06:59 | XMS RPT_ITS | CCD ---
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 Name Role Phone Angel, Fish Primary Care Unavailable Danis Houston Attending Unavailable Borruso, Stanislav Referring Unavailable Borruso, Stanislav Consulting Unavailable Angel, Fish Primary Care Unavailable Borruso, Stanislav Attending Unavailable Borruso, Stanislav Attending Unavailable Angel, Fish Primary Care Unavailable Angel, Fish Referring Unavailable Angel, Fish Primary Care Unavailable Borruso, Stanislav Attending Unavailable Angel, Fish Referring Unavailable Angel, Fish Primary Care Unavailable Borruso, Stanislav Attending Unavailable Angel, Fish Referring Unavailable Borruso, Stanislav Attending Unavailable Borruso, Stanislav Referring Unavailable Angel, Fish Primary Care Unavailable Angel, Fish Primary Care Unavailable Angel, Fish Attending Unavailable Angel, Fish Primary Care Unavailable Angel, Fish Attending Unavailable Angel, Fish Referring Unavailable Angel, Fish Primary Care Unavailable Arben Hamilton Attending Unavailable Angel, Fish Primary Care Unavailable Angel, Fish Attending Unavailable Angel, Fish Referring Unavailable Problems Active Problems Problem Classification Problem Date Documented Da te Episodic/Chronic Coagulation and hemorrhagic disorders (1 source) Thrombocytopenia, unspecified; Translations: [Thrombocytopenia , unspecified] Onset: 11-07-2024 Chronic Essential hypertension (1 source) Essential (primary) hypertension; Translations: [Essential (primary) hypertension] Onset: 10-10-2024 Chronic Other screening for suspected conditions (not mental disorders or infectious disease) (1 source) Encounter for screening mammogram for malignant neoplasm of breast; Translations: [Encounter for screening mammogram for malignant neoplasm of breast] Onset: 04-25-2025 Episodic Past or Other Problems Problem Classification Problem Date Documented Da te Episodic/Chronic Joint disorders and dislocations; trauma-related (3 sources) Other tear of medial meniscus, current injury, right knee, initial encounter; Translations: [Complex tear of medial meniscus, current injury, right knee, initial encounter] Onset: 10-08-2024 Episodic Other non-traumatic joint disorders (1 source) Pain in right knee; Translations: [Pain in right knee] Onset: 10-08-2024 Episodic Results Test Name Value Interpretation Reference Range Facility Orthopedic Visit Reporton Orthopedic Visit Report [facility] [address] [place] [address] [address] [place] [address] OFFICE VISIT Date of Service: 01/08/25 MR#: [id number] Acct: [id number] Name: JENNIFFER CASTRO Rep #: [id number] : 1950 Provider: Dr. Stanislav saenz DO Age/Sex: 74/F Location: [facility] [place] Status: Signed Intake Vital Signs 10/01/24 09:19 Height 4 ft 11 in Intake Visit Reasons: RIGHT KNEE Allergies No Known Allergies Allergy (Verified 01/08/25 10:12) Medications ???Medication ???Instructions ???Recorded ???Confirmed ???Type cholecalciferol (vitamin D3) 25 25 mcg PO DAILY 08/31/24 01/08/25 History mcg (1,000 unit) capsule (Vitamin D3) danazol 100 mg capsule 100 mg PO DAILY 08/31/24 01/08/25 History hydrochlorothiazide 25 mg tablet 25 mg PO DAILY 08/31/24 01/08/25 H istory multivitamin (Daily Multi-Vitamin 1 tab PO DAILY 08/31/24 01/08/25 History tablet) etodolac 500 mg tablet 500 mg PO BID #40 tabs 01/08/25 Rx Have you fallen in the past year?: No PFSH Medical History Wears glasses Arthritis BiPAP (biphasic positive airway pressure) dependence Sleep apnea Non-smoker History of edema Hereditary angioedema Surgical History History of local excision of skin lesion History of wisdom tooth extraction History of esophagogastroduodenoscopy (EGD) History of colonoscopy Hx of endoscopy Hx of tubal ligation Social History household members: spouse Smoking Status: Never smoker HPI RIGHT KNEE Details: This documentation accurately reflects the service provided and the decisions made by me, Dr. Stanislav Watts, DO 01/08/25 0812. Part of today???s visit was documented by Betty OLIVA, acting as scribe. JENNIFFER CASTRO is a 74 year old F here today for right knee pain. She states that on 01/04 she was making her bed and she went to turn and had immediate pain in the knee. Her pain is mostly anterior lateral about the patella she is also noticed posterior knee swelling. she states that since then the pain has gotten better but is still having quite a bit of pain. Any pivoting movements give her pain. She does feel some pain over her posterior knee when she stands. . She is using a crutch to help her ambulate. She has been icing her knee and has taken 2 extra strength Tylenol Arthritis and occasionally Ibuprofen. She does have some snapping in the knee but it is not painful. Her dos was 10/01/24 for an Arthroscopic right knee partial medial partial lateral meniscectomy and synovial biopsy. 10/14/2024 visit:2 weeks post-op Arthroscopic right knee partial medial partial lateral meniscectomy and synovial biopsy, dos: 10/01/24. She states that her knee is doing well. She does have some tenderness around the incision and has been working on her ROM. She isn't taking anything for pain and took some oxycodone the first day. Plan:Patient is here today for 2 weeks post-op right knee arthroscopy partial medial partial lateral meniscectomy and synovial biopsy, dos: 10/01/24. Patient is doing very well and has great ROM. She is very happy with her outcome thus far I counseled her not to overdo it she will follow-up on an as-needed basis only. 10/01/2024: Right knee arthroscopy: Postop diagnosis: right knee posterior horn and body medial meniscus tear anterior horn and body lateral meniscus tear. Procedure: Left knee arthroscopic partial medial partial lateral meniscectomy biopsy of synovium and meniscus. Ortho Exam General General: Yes no acute distress Neurologic: Yes alert and Yes oriented x3 Psychologic: Yes reasonable and appropriate Right Knee Skin/Wound: No erythema, No ecchymosis and Yes swelling Homans Sign: No Knee ROM: Yes ROM-Extension -20 to 0 and Yes ROM-Flexion 0-140 (125) Examination: No Med jt line tenderness, No Lat jt line tenderness, No Crepitus, Yes Pain with flexion, Yes Pain with extention, No Urmila's Test, No TTP Patellar tendon, No TTP Tibial tubercle and No TTP Pes Anserine Stability: NML: Anterior Drawer, NML: Posterior Drawer, NML: Valgus 0, NML: Valgus 30 and NML: Varus 0 Patella Translation: 1 Patella Grind: Yes KNEE: small effusion large bakers cyst pain under kneecap Left Knee Patella Translation: 1 Office Procedures Office Injections/Aspirations Procedure Detail Procedure performed by: Stanislav Watts Injection Site: Yes Medication Given: Yes Ortho Injections/Aspirations Yes Knee Right Details: Obtained consent for aspiration. Under sterile conditions, aspirated 32cc of blood tinged synovial fluid from the patients right knee. The patient tolerated the aspiration well without any noted complications. Pat (more content not included)... Normal [facility] KAROLINA + Protein Elect, Serumon 10-29-2024 Albumin [Mass/Vol] 3.0 g/dL Normal 2.9-4.4 [facility] Comment on above: Order Comment: N Performed By: #### L 500.4050, L100.0100, L3100.3425 #### [facility] [address] [place], [place], [id number] Albumin/Globulin [Mass ratio] 1.0 {ratio} Normal 0.7-1.7 [facility] Comment on above: Order Comment: N Performed By: #### L 500.4050, L100.0100, L3100.3425 #### [facility] [address] [place], [address] [id number] 0.3 g/dL Normal 0.0-0.4 [facility] Comment on above: Order Comment: N Performed By: #### L 500.4050, L100.0100, L3100.3425 #### [facility] [address] [place], [address] [id number] 1.1 g/dL High 0.4-1.0 [facility] Comment on above: Order Comment: N Performed By: #### L 500.4050, L100.0100, L3100.3425 #### [facility] [address] [place], [address] BETA GLOBULIN 1.1 g/dL Normal 0.7-1.3 [facility] Comment on above: Order Comment: N Performed By: #### L 500.4050, L100.0100, L3100.3425 #### [facility] [address] [place], [address] GAMMA GLOBULIN 0.7 g/dL Normal 0.4-1.8 [facility] Comment on above: Order Comment: N Performed By: #### L 500.4050, L100.0100, L3100.3425 #### [facility] [address] [place], [address] Globulin (S) [Mass/Vol] 3.3 g/dL Normal 2.2-3.9 [facility] Comment on above: Order Comment: N Performed By: #### L 500.4050, L100.0100, L3100.3425 #### [facility] [address] [place], [address] KAROLINA RESULT,S Comment Normal . [facility] Comment on above: Order Comment: N Result Comment: No m onoclonality detected. Performed By: #### L 500.4050, L100.0100, L3100.3425 #### [facility] [address] [place], [address] IMMUNOGLOB A QN 160 mg/dL Normal 64-422 [facility] Comment on above: Order Comment: N Performed By: #### L 500.4050, L100.0100, L3100.3425 #### [facility] [address] [place], [address] IMMUNOGLOB G QN 960 mg/dL Normal 586-1602 [facility] Comment on above: Order Comment: N Performed By: #### L 500.4050, L100.0100, L3100.3425 #### [facility] [address] [place], [address] IMMUNOGLOB M QN 46 mg/dL Normal 26-217 [facility] Comment on above: Order Comment: N Performed By: #### L 500.4050, L100.0100, L3100.3425 #### [facility] [address] [place], [address] M-Christoph Not Observed Normal Not Observed [facility] Comment on above: Order Comment: N Performed By: #### L 500.4050, L100.0100, L3100.3425 #### [facility] [address] [place], [address] NOTE: Comment Normal . [facility] Comment on above: Order Comment: N Result Comment: Prot ein electrophoresis scan will follow via computer, mail, or field consultant delivery. Performed at: [address] [id number] Judicial Registrar: Eddie Buckner PhD, Phone: [phone] Performed By: #### L 500.4050, L100.0100, L3100.3425 #### [facility] [address] [place], [address] Protein [Mass/Vol] 6.3 g/dL Normal 6.0-8.5 [facility] Comment on above: Order Comment: N Performed By: #### L 500.4050, L100.0100, L3100.3425 #### [facility] [address] [place], [address] CBC W/Diff, Automatedon 02-2 Absolute Lymph 1.31 X10 3/uL Normal 0.83-4.51 [facility] Comment on above: Performed By: #### L 500.4050, L100.0100, L3100.3425 #### [facility] [address] [place], [address] Absolute Neut 2.0 X10 3/uL Normal 2.0-7.7 [facility] Comment on above: Performed By: #### L 500.4050, L100.0100, L3100.3425 #### [facility] [address] [place], [address] Basophils/100 WBC (Bld) 0.7 % Normal 0-1 [facility] Comment on above: Performed By: #### L 500.4050, L100.0100, L3100.3425 #### [facility] [address] [place], [address] Eosinophils/100 WBC (Bld) 11.4 % High 0-5 [facility] Comment on above: Performed By: #### L 500.4050, L100.0100, L3100.3425 #### [facility] [address] [place], [address] Erythrocyte distribution width (RBC) [Ratio] 14.7 % High 11.6-14.6 [facility] Comment on above: Performed By: #### L 500.4050, L100.0100, L3100.3425 #### [facility] [address] [place], [address] Hematocrit (Bld) [Volume fraction] 45.4 % Normal 37-47 [facility] Comment on above: Performed By: #### L 500.4050, L100.0100, L3100.3425 #### [facility] [address] [place], [address] Hemoglobin (Bld) [Mass/Vol] 14.7 g/dL Normal 12.0-15.0 [facility] Comment on above: Performed By: #### L 500.4050, L100.0100, L3100.3425 #### [facility] [address] [place], [address] IG% 0.000 Normal 0.0-0.9 [facility] Comment on above: Result Comment: IG% - Immature Granulocytes (promyelocytes, myelocytes and metamyelocytes) > 1% indicates that a LEFT SHIFT is Present. Performed By: #### L 500.4050, L100.0100, L3100.3425 #### [facility] [address] [place], [address] Lymphocytes/100 WBC (Bld) 30.5 % Normal 19-41 [facility] Comment on above: Performed By: #### L 500.4050, L100.0100, L3100.3425 #### [facility] [address] [place], [address] MCH (RBC) [Entitic mass] 28.1 pg Normal 27.0-32.0 [facility] Comment on above: Performed By: #### L 500.4050, L100.0100, L3100.3425 #### [facility] [address] [place], [address] MCHC (RBC) [Mass/Vol] 32.4 g/dL Normal 32-36 [facility] Comment on above: Performed By: #### L 500.4050, L100.0100, L3100.3425 #### [facility] [address] [place], [address] MCV (RBC) [Entitic vol] 86.6 fL Normal 81-99 [facility] Comment on above: Performed By: #### L 500.4050, L100.0100, L3100.3425 #### [facility] [address] [place], [address] Monocytes/100 WBC (Bld) 10.2 % High 0-10 [facility] Comment on above: Performed By: #### L 500.4050, L100.0100, L3100.3425 #### [facility] [address] [place], [address] Neutrophils/100 WBC (Bld) 47.2 % Normal 47-70 [facility] Comment on above: Performed By: #### L 500.4050, L100.0100, L3100.3425 #### [facility] [address] [place], [address] Nucleated RBC (Bld) [#/Vol] 0 10*3/uL Normal 0-5 [facility] Comment on above: Performed By: #### L 500.4050, L100.0100, L3100.3425 #### [facility] [address] [place], [address] Platelet mean volume (Bld) [Entitic vol] 9.7 fL Normal 6.2-12.0 [facility] Comment on above: Performed By: #### L 500.4050, L100.0100, L3100.3425 #### [facility] [address] [place], [address] Platelets (Bld) [#/Vol] 389 10*3/uL Normal 150-450 [facility] Comment on above: Performed By: #### L 500.4050, L100.0100, L3100.3425 #### [facility] [address] [place], [address] RBC (Bld) [#/Vol] 5.24 10*6/uL Normal 4.2-5.4 [facility] Comment on above: Performed By: #### L 500.4050, L100.0100, L3100.3425 #### [facility] [address] [place], [address] RDW SD 47.0 fl High 35.1-43.9 [facility] Comment on above: Performed By: #### L 500.4050, L100.0100, L3100.3425 #### [facility] [address] [place], [address] WBC (Bld) [#/Vol] 4.3 10*3/uL Low 4.4-11.0 [facility] Comment on above: Performed By: #### L 500.4050, L100.0100, L3100.3425 #### [facility] [address] [place], [address] Comprehensive Metabolic Prof ilon 10-25-2024 Albumin [Mass/Vol] 3.0 g/dL Low 3.2-5.0 [facility] Comment on above: Performed By: #### L 500.4050, L100.0100, L3100.3425 #### [facility] [address] [place], [address] Albumin/Globulin [Mass ratio] 0.7 {ratio} Low 0.9-2.4 [facility] Comment on above: Performed By: #### L 500.4050, L100.0100, L3100.3425 #### [facility] [address] [place], [address] ALK P 63 U/L Normal 45-117 [facility] Comment on above: Performed By: #### L 500.4050, L100.0100, L3100.3425 #### [facility] [address] [place], [address] ALT [Catalytic activity/Vol] 29 U/L Normal 13-56 [facility] Comment on above: Performed By: #### L 500.4050, L100.0100, L3100.3425 #### [facility] [address] [place], [address] AST [Catalytic activity/Vol] 22 U/L Normal 15-37 [facility] Comment on above: Performed By: #### L 500.4050, L100.0100, L3100.3425 #### [facility] [address] [place], [address] Bilirubin [Mass/Vol] 0.60 mg/dL Normal 0.20-1.00 [facility] Comment on above: Result Comment: For patients on eltrombopag therapy, use of Dimension [place] TBIL is not recommended. Performed By: #### L 500.4050, L100.0100, L3100.3425 #### [facility] [address] [place], [address] BUN/CRE 26.8 RATIO High 10-20 [facility] Comment on above: Performed By: #### L 500.4050, L100.0100, L3100.3425 #### [facility] [address] [place], [address] CA,Total 9.3 mg/dL Normal 8.5-10.1 [facility] Comment on above: Performed By: #### L 500.4050, L100.0100, L3100.3425 #### [facility] [address] [place], [address] Chloride [Moles/Vol] 102 mmol/L Normal 98-107 [facility] Comment on above: Performed By: #### L 500.4050, L100.0100, L3100.3425 #### [facility] [address] [place], [address] CO2 [Moles/Vol] 29.0 mmol/L Normal 21.0-32.0 [facility] Comment on above: Performed By: #### L 500.4050, L100.0100, L3100.3425 #### [facility] [address] [place], [address] Creatinine [Mass/Vol] 0.86 mg/dL Normal 0.55-1.02 [facility] Comment on above: Result Comment: The validity of the calculated GFR GFRAA in patients over 70 years has not been determined. Clinical correlation is essential. Performed By: #### L 500.4050, L100.0100, L3100.3425 #### [facility] [address] [place], [address] EST GFR - AA 84 mL/min Normal >60 [facility] Comment on above: Result Comment: Afri can French GFR Calc Performed By: #### L 500.4050, L100.0100, L3100.3425 #### [facility] [address] [place], [address] GAP 7 Normal 5-15 [facility] Comment on above: Performed By: #### L 500.4050, L100.0100, L3100.3425 #### [facility] [address] [place], [address] GFR/1.73 sq M.predicted among non-blacks MDRD (S/P/Bld) [Vol rate/Area] 69 mL/min/{1.73_m2} Normal >60 [facility] Comment on above: Result Comment: Non- GFR Calc Performed By: #### L 500.4050, L100.0100, L3100.3425 #### [facility] [address] [place], [address] Globulin (S) [Mass/Vol] 4.1 g/dL Normal 2.2-4.2 [facility] Comment on above: Performed By: #### L 500.4050, L100.0100, L3100.3425 #### [facility] [address] [place], [address] Glucose [Mass/Vol] 96 mg/dL Normal 74-106 [facility] Comment on above: Performed By: #### L 500.4050, L100.0100, L3100.3425 #### [facility] [address] [place], [address] Potassium [Moles/Vol] 3.9 mmol/L Normal 3.5-5.1 [facility] Comment on above: Performed By: #### L 500.4050, L100.0100, L3100.3425 #### [facility] [address] [place], [address] Sodium [Moles/Vol] 139 mmol/L Normal 136-145 [facility] Comment on above: Performed By: #### L 500.4050, L100.0100, L3100.3425 #### [facility] [address] [place], [address] T PROT 7.1 g/dL Normal 6.4-8.2 [facility] Comment on above: Performed By: #### L 500.4050, L100.0100, L3100.3425 #### [facility] [address] [place], [address] Urea nitrogen [Mass/Vol] 23 mg/dL High 7-18 [facility] Comment on above: Performed By: #### L 500.4050, L100.0100, L3100.3425 #### [facility] [address] [place], [address] Orthopedic Visit Reporton Orthopedic Visit Report [facility] [address] [place] [address] [address] [place] [address] OFFICE VISIT Date of Service: 10/14/24 MR#: [id number] Acct: [id number] Name: JENNIFFER CASTRO Sara Rep #: [id number] : 1950 Provider: Dr. Stanislav saenz DO Age/Sex: 74/F Location: [facility] [place] Status: Signed Intake Vital Signs 09/18/24 08:42 10/01/24 09:19 Height 4 ft 11 in 4 ft 11 in Intake Visit Reasons: right knee Allergies No Known Allergies Allergy (Verified 10/14/24 13:04) Medications ???Medication ???Instructions ???Recorded ???Confirmed ???Type cholecalciferol (vitamin D3) 25 25 mcg PO DAILY 08/31/24 10/14/24 History mcg (1,000 unit) capsule (Vitamin D3) danazol 100 mg capsule 100 mg PO DAILY 08/31/24 10/14/24 History hydrochlorothiazide 25 mg tablet 25 mg PO DAILY 08/31/24 10/14/24 H istory multivitamin (Daily Multi-Vitamin 1 tab PO DAILY 08/31/24 10/14/24 History tablet) Have you fallen in the past year?: No PFSH Medical History Wears glasses Arthritis BiPAP (biphasic positive airway pressure) dependence Sleep apnea Non-smoker History of edema Hereditary angioedema Surgical History History of local excision of skin lesion History of wisdom tooth extraction History of esophagogastroduodenoscopy (EGD) History of colonoscopy Hx of endoscopy Hx of tubal ligation Social History household members: spouse Smoking Status: Never smoker HPI right knee Details: This documentation accurately reflects the service provided and the decisions made by me, Dr. Stanislav Watts, DO 10/14/24 0810. Part of today???s visit was documented by Betty OLIVA, acting as scribe. JENNIFFER CASTRO is a 74 year old F here today for 2 weeks post-op Arthroscopic right knee partial medial partial lateral meniscectomy and synovial biopsy, dos: 10/01/24. She states that her knee is doing well. She does have some tenderness around the incision and has been working on her ROM. She isn't taking anything for pain and took some oxycodone the first day. She does have some tightness in the knee. Ortho Exam General General: Yes no acute distress Neurologic: Yes alert and Yes oriented x3 Psychologic: Yes reasonable and appropriate Right Knee Skin/Wound: No erythema, No ecchymosis and No swelling Knee ROM: Yes ROM-Extension -20 to 0 and Yes ROM-Flexion 0-140 KNEE: no effusion incisions healing well no signs of infection or DVT no joint effusion she has excellent range of motion no significant tenderness Supplemental Info 10/01/2024: Right knee arthroscopy: Postop diagnosis: right knee posterior horn and body medial meniscus tear anterior horn and body lateral meniscus tear. Procedure: Left knee arthroscopic partial medial partial lateral meniscectomy biopsy of synovium and meniscus. Coding Level of Care Code Global Post Op Diagnoses Orthopedic aftercare Z47.89 Assessment and Plan Assessment and Plan (1) Orthopedic aftercare: Status: Acute Plan Patient is here today for 2 weeks post-op right knee arthroscopy partial medial partial lateral meniscectomy and synovial biopsy, dos: 10/01/24. Patient is doing very well and has great ROM. She is very happy with her outcome thus far I counseled her not to overdo it she will follow-up on an as-needed basis only. Follow up as needed or sooner if pain, swelling, numbness or associated symptoms, or concerns develop. All questions answered. Patient in agreement of plan. Clinical Quality Measures Falls Risk Screening/Assistive Devices Have you fallen in the past year?: No 10/14/24 1345 Date Stanislav Aguero Signature: Date (if applicable) CC: Normal [facility] Crystals, Body Fluidon 10-01 BODY FLUID QC Normal [facility] Comment on above: Order Comment: Augusto vega: COLLECTED IN OR Result Comment: BETTY WAGNER TO PERFORM CRYSTAL ANALYSIS ON SPECIMEN DUE TO IT NOT BEING A FLUID Performed By: #### L 200.4175 #### [facility] [address] [place], [address] CRYSTALS/BF [facility] Comment on above: Order Comment: Augusto vega: COLLECTED IN OR Result Comment: UNAB LE TO PERFORM CRYSTAL ANALYSIS ON SPECIMEN DUE TO IT NOT BEING A FLUID Performed By: #### L 200.4175 #### [facility] [address] [place], [place], [address] SOURCE/BF Normal [facility] Comment on above: Order Comment: Comme nts: COLLECTED IN OR Result Comment: UNAB LE TO PERFORM CRYSTAL ANALYSIS ON SPECIMEN DUE TO IT NOT BEING A FLUID Performed By: #### L 200.4175 #### [facility] [address] [place], [address] Discharge Instructionon 09-05 Discharge Instruction [facility] Medical Records Department [address] [place] [address] Instructions for Home/Discharge Instructions 10/01/24 1149 MR#: [id number] Acct: [id number] Name: JENNIFFER CASTRO Rep #: [id number] : 1950 74 From: Stanislav Watts DO PCP: Dr. Fish Ortiz DO [place] [facility] [place] Instructions Diet Discharge Diet: No restrictions Activity Weight Bearing Status: Full weight bearing Dressing / Incision Call your doctor if you observe: Shortness of breath and Chest pain Additional Dressing/Incision Instructions:: Ice and elevate next 72 hours .keep dressing on clean and dry for 48 hours then may remove begin showering daily but do not submerge in tub or pool. After shower may apply Band-Aids . Encourage knee range of motion weightbearing as tolerated, use crutches until confident in knee then may discontinue. No strenuous activity. When not ambulating keep iced and elevated next 72 hours. Do not mix pain medication with recreational drugs or alcohol only take as prescribed can be addictive and abusive, call with any questions or concerns. Follow Up Care Please Follow Up With: Stanislav Watts DO When: 2 weeks Test Results: Test results from this visit will be discussed in further detail at your follow-up appointment, if applicable. Discharge Plan Admission Primary Reason for Your Visit: Right knee arthroscopy Attending Provider: Stanislav Watts Primary Care Provider: Fish Ortiz Instructions Print Language: Latvian Discharge Orders/Prescriptions Prescriptions: New oxycodone 5 mg tablet 5 - 10 mg PO Q4H PRN (Reason: pain) 7 Days Qty: 20 0RF Continued danazol 100 mg capsule 100 mg PO DAILY cholecalciferol (vitamin D3) [Vitamin D3] 25 mcg (1,000 unit) capsule 25 mcg PO DAILY multivitamin [Daily Multi-Vitamin] Tablet 1 tab PO DAILY hydrochlorothiazide 25 mg tablet 25 mg PO DAILY Referrals / Follow Up: Fish Ortiz DO [Primary Care Provider] - Disposition Disposition (needs filled in before D/C Order can be placed): Home, Self Care 10/01/24 1153 Stanislav Watts DO CC: Dr. Fish Ortiz DO Signed [facility] MR/POSTOP.ANEon 10-01-2024 MR/POSTOP.[facility] Medical Records Department [address] [place] [address] Anesthesia Postop Eval I 10/01/24 1154 MR#: [id number] Acct: [id number] Name: CASTROJENNIFFER L Rep #: [id number] : 1950 74 From: Justin Roach CRNA PCP: Dr. Fish Ortiz DO Status:REG SDC Y Race: C Location: [place] [address] Anesthesia: Postop Eval I Current Vital Signs Temperature: 96.8 F Pulse Rate: 78 Blood Pressure: 146/96 Respiratory Rate: 20 Pulse Ox: 99 Assessment Airway patent: Yes Spontaneous unlabored respirations: Yes nausea: No Vomiting: No Anesthesia Complication: No Fluid Hydration Crystalloid volume administer (ml): 900 Total IV fluid infused: 900 Progress Note Anesthesia document: Postop Eval 1 completed: Yes 10/01/24 1156 Date Justin Rg Signature: Date CC: Signed [facility] MR/[id number] 10-01-2024 MR/POSTOPAN2 [facility] Medical Records Department [address] [place] [address] Anesthesia Postop Eval II 10/01/246 MR#: [id number] Acct: [id number] Name: JENNIFFER CASTRO Rep #: [id number] : 1950 74 From: Pedrito Flowers MD PCP: Dr. Fish Ortiz, DO Status[place] [facility] [place] Race: C [place] [facility] [place]esthesia Postop Eval I Sum Postop Eval Completion status Anesthesia document: Postop Eval 1 completed: Yes Anesthesia Postop Eval I Summary Anesthesia Postop Eval I Summary: Anesthesia Postop Eval I: Assessment Summary Airway patent Yes 10/01/24 11:54 SLAB LIFTING [email or web address] Spontaneous unlabored Yes 10/01/24 11:54 SLAB LIFTING ENGINEER.PKEL respirations Mental status nausea No 10/01/24 11:54 SLAB LIFTING ENGINEER.PKEL Vomiting No 10/01/24 11:54 SLAB LIFTING [email or web address].PKEL Anesthesia Postop Eval I: Fluid Summary Crystalloid volume administer 900 10/01/24 11:54 SLAB LIFTING [email or web address].PKEL (ml) Colloids volume administered ( ml) Blood Product volume administered (ml) Total IV fluid infused 900 10/01/24 11:54 SLAB LIFTING [email or web address].PKEL Anesthesia Postop Eval I: Summary Notes Anesthesia Complication No 10/01/24 11:54 SLAB LIFTING [email or web address] Anesthesia Complication Comment: Post-operative progress note Anesthesia: Postop Eval II Evaluation Mental status: Awake and Calm Pain Level: 1 nausea: No Vomiting: No Complications Anesthesia Complication: No 10/01/242256 Date Pedrito Flowers MD Cosigner Signature: Date CC: Signed Normal [facility] Operative Reporton 5 Operative Report [facility] Medical Records Department [address] [place] [address] Operative Report 10/01/24 1144 MR#: [id number] Acct: [id number] Name: JENNIFFER CASTRO Rep #: [id number] : 1950 74 From: Stanislav Watts DO PCP: Dr. Fish Ortiz, DO Status[place] [facility] [place]: [place] [address] Operative Report (Standard) Operative Information Date of Procedure: 10/01/24 Pre-Operative Diagnosis: Right knee medial and lateral meniscus tear Post-Operative Diagnosis: Same Surgery/Procedure Performed: Arthroscopic right knee partial medial partial lateral meniscectomy and synovial biopsy retirement sales consultant: Yes Mud Analysis Operator: Raul Clifton Tasks completed by airline pilot/first officer: Opening closing Type of Anesthesia: General RN Documented Start/Stop Times: Operation Date: 10/01/24 10:45 Case Time Into Pre-Op 10/01/24 09:06 Out of Pre-Op 10/01/24 10:46 Anesthesia Start 10/01/24 10:48 Into Room 10/01/24 10:48 Procedure Start 10/01/24 11:13 Procedure End 10/01/24 11:43 Procedure Start Time: 11:13 Procedure Stop Time: 11:43 Select all DRAINS/GRAFTS/IMPLANTS that apply: None Estimated Blood Loss: 5 Specimen collected: Yes Description of specimen(s) removed: Meniscus and synovial tissue for crystal analysis Description of surgery: Preop diagnosis: Right knee posterior horn and body medial meniscus tear anterior horn and body lateral meniscus tear Postoperative diagnosis: Same Procedure: Left knee arthroscopic partial medial partial lateral meniscectomy biopsy of synovium and meniscus Anesthesia: General Estimated blood loss: 5 mL Tourniquet time: 28 minutes 300 mmHg Complications: none Specimens synovium and meniscus shavings for crystal analysis Indication for procedure: 74-year-old female patient who has had ongoing mechanical knee pain did have an MRI with evidence of medial lateral meniscus tear the patient did wish to proceed with an elective arthroscopic surgery to attempt to alleviate the symptoms. Risk benefits and alternatives of the procedure were reviewed including risk of bleeding infection nerve artery tissue damage need for further surgery continued pain and expected postoperative course. Procedure: The patient was met in the preoperative holding area. The operative extremity was identified by both patient and physician and family and marked. Patient was brought back to the operating room on a wheeled cart and transferred to the operating table in the supine position. Anesthesia was started. A well-padded tourniquet was placed on the operative extremity. A lower extremity leg bess was secured to the operative extremity. The contralateral extremity was well- padded and the end of the bed was flexed to 90 degrees. The patient was prepped and draped in the usual sterile fashion. A timeout was called to ensure the proper patient, procedure, and extremity were being contemplated. 0.5% Marcaine with epinephrine was injected into the planned incisional areas under the skin only. An Esmarch was used to exsanguinate the extremity and the tourniquet was inflated. An 11 blade scalpel was used to make a stab incision in the anterior lateral portal. The arthroscope was inserted into the intercondylar notch and inflow and outflow tubes were attached. Arthroscopic visualization began. The medial compartment was entered. An 18-gauge spinal needle was used to establish the placement for anterior medial portal. An 11 blade scalpel was used to make a stab incision. Blunt probe was inserted followed by a meniscal probe. Immediately there was noted a complex degenerative tearing of the medial meniscus body and horn with the use of arthroscopic biting instruments and a shaver and ArthroCare wand partial medial meniscectomy was performed the ACL was found to be intact. The lateral compartment was entered complex tearing of the anterior horn and body and had a degenerative appearance with also some either crystal deposition or remnant of steroid injection with use of arthroscopic shaver filter we did collect some of the meniscal and soft tissue and sent it for crystal analysis with the use of arthroscopic biting instruments and lydia and ArthroCare wand a partial lateral meniscectomy was performed. The arthroscope was switched to the medial portal to complete the procedure. The medial and lateral gutters were inspected and were free of loose bodies. The patellofemoral joint was inspected and was consistent with grade 2 cartilage softening throughout the knee with some areas of grade 3. There was good patellar tracking. The knee was thoroughly irrigated and drained. An intra- articular injection with 5 cc 0.5% Marcaine plain and 40 mg of Depo-Medrol was injected intra- articularly. The arthroscope was removed the portals were closed with 3-0 nylon arthroscopic stitches. Followed by [employer] 4 x 4's ABDs web (more content not included)... Normal [facility] Surgery Specimen Level Emma 10-01-2024 Surgery Specimen Level IV ----- Patient Age/Sex Location Account Attending Physician ----- JENNIFFER CASTRO 74/[place] [facility] [id number]. Stanislav Watts DO ----- Specimen: [id number] Received: 10/01/24 Status: [place] Num: [id number] Spec Type: SYNOVIUM Subm Dr: Dr. Stanislav Watts DO [facility] OPERATION: Right knee arthroplasty, partial medial and lateral PRE-OP DIAGNOSIS: Tear of medial meniscus of right knee TISSUE SUBMITTED: Right knee soft tissue and crystals ----- MICROSCOPIC DIAGNOSIS Right knee soft tissue and crystals: A piece of fibroadipose tissue, fibroconnective tissue and reactive synovial tissue. See comment. .mr 10/02/2024 COMMENT Touch imprint evaluation for crystals: Negative for crystals. Correlation with clinical findings and appropriate follow up are necessary. MICROSCOPIC DESCRIPTION Slides are reviewed. GROSS DESCRIPTION Received in fixative is one container labeled with the patient's name and designated Right knee soft tissue and crystals. The specimen consists of a piece of soto-yellow adipose tissue measuring 0.5 x 0.3 x 0.1cm. one touch imprint is prepared for crystal examination. The entire specimen is submitted in one cassette. . 10/01/2024 TC:5 CPT:40204,99163 ----- Patient Age/Sex Location Account Attending Physician ----- JENNIFFER CASTRO 74/F [facility] [id number] Dr. Stanislav Watts, ----- Signed (signature on file) Dr. Denis Montalvo MD 10/02/24 1201 ----- Normal [facility] Comment on above: Performed By: #### P SUIV #### [facility] [address] [place], [address] CBC W/Diff, Automatedon 01-2 Absolute Lymph 1.33 X10 3/uL Normal 0.83-4.51 [facility] Comment on above: Performed By: #### L 506.1000, L100.0100, L500.4100, L500.4050 #### [facility] [address] [place], [address] Absolute Neut 2.5 X10 3/uL Normal 2.0-7.7 [facility] Comment on above: Performed By: #### L 506.1000, L100.0100, L500.4100, L500.4050 #### [facility] [address] [place], [address] Basophils/100 WBC (Bld) 0.9 % Normal 0-1 [facility] Comment on above: Performed By: #### L 506.1000, L100.0100, L500.4100, L500.4050 #### [facility] [address] [place], [address] Eosinophils/100 WBC (Bld) 3.9 % Normal 0-5 [facility] Comment on above: Performed By: #### L 506.1000, L100.0100, L500.4100, L500.4050 #### [facility] [address] [place], [address] Erythrocyte distribution width (RBC) [Ratio] 14.0 % Normal 11.6-14.6 [facility] Comment on above: Performed By: #### L 506.1000, L100.0100, L500.4100, L500.4050 #### [facility] [address] [place], [address] Hematocrit (Bld) [Volume fraction] 47.0 % Normal 37-47 [facility] Comment on above: Performed By: #### L 506.1000, L100.0100, L500.4100, L500.4050 #### [facility] [address] [place], [address] Hemoglobin (Bld) [Mass/Vol] 15.3 g/dL High 12.0-15.0 [facility] Comment on above: Performed By: #### L 506.1000, L100.0100, L500.4100, L500.4050 #### [facility] [address] [place], [address] IG% 0.200 Normal 0.0-0.9 [facility] Comment on above: Result Comment: IG% - Immature Granulocytes (promyelocytes, myelocytes and metamyelocytes) > 1% indicates that a LEFT SHIFT is Present. Performed By: #### L 506.1000, L100.0100, L500.4100, L500.4050 #### [facility] [address] [place], [address] Lymphocytes/100 WBC (Bld) 28.7 % Normal 19-41 [facility] Comment on above: Performed By: #### L 506.1000, L100.0100, L500.4100, L500.4050 #### [facility] [address] [place], [address] MCH (RBC) [Entitic mass] 28.4 pg Normal 27.0-32.0 [facility] Comment on above: Performed By: #### L 506.1000, L100.0100, L500.4100, L500.4050 #### [facility] [address] [place], [address] MCHC (RBC) [Mass/Vol] 32.6 g/dL Normal 32-36 [facility] Comment on above: Performed By: #### L 506.1000, L100.0100, L500.4100, L500.4050 #### [facility] [address] [place], [address] MCV (RBC) [Entitic vol] 87.4 fL Normal 81-99 [facility] Comment on above: Performed By: #### L 506.1000, L100.0100, L500.4100, L500.4050 #### [facility] [address] [place], [address] Monocytes/100 WBC (Bld) 11.9 % High 0-10 [facility] Comment on above: Performed By: #### L 506.1000, L100.0100, L500.4100, L500.4050 #### [facility] [address] [place], [address] Neutrophils/100 WBC (Bld) 54.4 % Normal 47-70 [facility] Comment on above: Performed By: #### L 506.1000, L100.0100, L500.4100, L500.4050 #### [facility] [address] [place], [address] Nucleated RBC (Bld) [#/Vol] 0 10*3/uL Normal 0-5 [facility] Comment on above: Performed By: #### L 506.1000, L100.0100, L500.4100, L500.4050 #### [facility] [address] [place], [address] Platelet mean volume (Bld) [Entitic vol] 9.6 fL Normal 6.2-12.0 [facility] Comment on above: Performed By: #### L 506.1000, L100.0100, L500.4100, L500.4050 #### [facility] [address] [place], [address] Platelets (Bld) [#/Vol] 474 10*3/uL High 150-450 [facility] Comment on above: Performed By: #### L 506.1000, L100.0100, L500.4100, L500.4050 #### [facility] [address] [place], [address] RBC (Bld) [#/Vol] 5.38 10*6/uL Normal 4.2-5.4 [facility] Comment on above: Performed By: #### L 506.1000, L100.0100, L500.4100, L500.4050 #### [facility] [address] [place], [address] RDW SD 45.1 fl High 35.1-43.9 [facility] Comment on above: Performed By: #### L 506.1000, L100.0100, L500.4100, L500.4050 #### [facility] [address] [place], [address] WBC (Bld) [#/Vol] 4.6 10*3/uL Normal 4.4-11.0 [facility] Comment on above: Performed By: #### L 506.1000, L100.0100, L500.4100, L500.4050 #### [facility] [address] [place], [address] Comprehensive Metabolic Prof [facility] 09-24-2024 Albumin [Mass/Vol] 3.1 g/dL Low 3.2-5.0 [facility] Comment on above: Performed By: #### L 506.1000, L100.0100, L500.4100, L500.4050 #### [facility] [address] [place], [address] Albumin/Globulin [Mass ratio] 0.7 {ratio} Low 0.9-2.4 [facility] Comment on above: Performed By: #### L 506.1000, L100.0100, L500.4100, L500.4050 #### [facility] [address] [place], [address] ALK P 51 U/L Normal 45-117 [facility] Comment on above: Performed By: #### L 506.1000, L100.0100, L500.4100, L500.4050 #### [facility] [address] [place], [address] ALT [Catalytic activity/Vol] 39 U/L Normal 13-56 [facility] Comment on above: Performed By: #### L 506.1000, L100.0100, L500.4100, L500.4050 #### [facility] [address] [place], [address] AST [Catalytic activity/Vol] 23 U/L Normal 15-37 [facility] Comment on above: Performed By: #### L 506.1000, L100.0100, L500.4100, L500.4050 #### [facility] [address] [place], [address] Bilirubin [Mass/Vol] 0.40 mg/dL Normal 0.20-1.00 [facility] Comment on above: Result Comment: For patients on eltrombopag therapy, use of Dimension [place] TBIL is not recommended. Performed By: #### L 506.1000, L100.0100, L500.4100, L500.4050 #### [facility] [address] [place], [address] BUN/CRE 33.9 RATIO High 10-20 [facility] Comment on above: Performed By: #### L 506.1000, L100.0100, L500.4100, L500.4050 #### [facility] [address] [place], [address] CA,Total 9.6 mg/dL Normal 8.5-10.1 [facility] Comment on above: Performed By: #### L 506.1000, L100.0100, L500.4100, L500.4050 #### [facility] [address] [place], [address] Chloride [Moles/Vol] 102 mmol/L Normal 98-107 [facility] Comment on above: Performed By: #### L 506.1000, L100.0100, L500.4100, L500.4050 #### [facility] [address] [place], [address] CO2 [Moles/Vol] 30.0 mmol/L Normal 21.0-32.0 [facility] Comment on above: Performed By: #### L 506.1000, L100.0100, L500.4100, L500.4050 #### [facility] [address] [place], [address] Creatinine [Mass/Vol] 0.82 mg/dL Normal 0.55-1.02 [facility] Comment on above: Result Comment: The validity of the calculated GFR GFRAA in patients over 70 years has not been determined. Clinical correlation is essential. Performed By: #### L 506.1000, L100.0100, L500.4100, L500.4050 #### [facility] [address] [place], [address] EST GFR - AA 88 mL/min Normal >60 [facility] Comment on above: Result Comment: Afri can French GFR Calc Performed By: #### L 506.1000, L100.0100, L500.4100, L500.4050 #### [facility] [address] [place], [address] GAP 8 Normal 5-15 [facility] Comment on above: Performed By: #### L 506.1000, L100.0100, L500.4100, L500.4050 #### [facility] [address] [place], [address] GFR/1.73 sq M.predicted among non-blacks MDRD (S/P/Bld) [Vol rate/Area] 72 mL/min/{1.73_m2} Normal >60 [facility] Comment on above: Result Comment: Non- GFR Calc Performed By: #### L 506.1000, L100.0100, L500.4100, L500.4050 #### [facility] [address] [place], [address] Globulin (S) [Mass/Vol] 4.7 g/dL High 2.2-4.2 [facility] Comment on above: Performed By: #### L 506.1000, L100.0100, L500.4100, L500.4050 #### [facility] [address] [place], [address] Glucose [Mass/Vol] 91 mg/dL Normal 74-106 [facility] Comment on above: Performed By: #### L 506.1000, L100.0100, L500.4100, L500.4050 #### [facility] [address] [place], [address] Potassium [Moles/Vol] 3.9 mmol/L Normal 3.5-5.1 [facility] Comment on above: Performed By: #### L 506.1000, L100.0100, L500.4100, L500.4050 #### [facility] [address] [place], [address] Sodium [Moles/Vol] 140 mmol/L Normal 136-145 [facility] Comment on above: Performed By: #### L 506.1000, L100.0100, L500.4100, L500.4050 #### [facility] [address] [place], [address] T PROT 7.8 g/dL Normal 6.4-8.2 [facility] Comment on above: Performed By: #### L 506.1000, L100.0100, L500.4100, L500.4050 #### [facility] [address] [place], [address] Urea nitrogen [Mass/Vol] 28 mg/dL High 7-18 [facility] Comment on above: Performed By: #### L 506.1000, L100.0100, L500.4100, L500.4050 #### [facility] [address] [place], [address] Lipid Profileon 09-24-2024 Cholesterol [Mass/Vol] 188 mg/dL Normal 200 [facility] Comment on above: Result Comment: <200 mg/dL Desirable 200-240 mg/dL Borderline >240 mg/dL High Risk Performed By: #### L 506.1000, L100.0100, L500.4100, L500.4050 #### [facility] [address] [place], [address] Cholesterol in HDL [Mass/Vol] 26 mg/dL Low [facility] Comment on above: Result Comment: The drugs N-Acetylcysteine and Metamizole may falsely depress this assay. Reference Range HDL <40 mg/dL Low HDL Cholesterol HDL >or= 60 mg/dL High HDL Cholesterol Performed By: #### L 506.1000, L100.0100, L500.4100, L500.4050 #### [facility] [address] [place], [address] Cholesterol in LDL [Mass/Vol] 142 mg/dL High 0-130 [facility] Comment on above: Performed By: #### L 506.1000, L100.0100, L500.4100, L500.4050 #### [facility] [address] [place], [address] Cholesterol in VLDL [Mass/Vol] 20 mg/dL Normal 5-40 [facility] Comment on above: Performed By: #### L 506.1000, L100.0100, L500.4100, L500.4050 #### [facility] [address] [place], [address] Triglyceride [Mass/Vol] 98 mg/dL Normal [facility] Comment on above: Result Comment: The drugs N-Acetylcysteine and Metamizole may falsely depress this assay. Serum Triglycerides Reference Interval Normal <150 mg/dL Borderline high 150 - 199 mg/dL High 200 - 499 mg/dL Very High > or = 500 mg/dL Performed By: #### L 506.1000, L100.0100, L500.4100, L500.4050 #### [facility] [address] [place], [address] Vitamin D,25 Hydroxyon 09-24 Vitamin D 25-OH 62.4 ng/mL Normal [facility] Comment on above: Result Comment: Yesica min D 25(OH) Status Range Deficiency <20 ng/mL (50nmol/L) Insufficiency 20 - 30 ng/mL (50 - 75 nmol/L) Sufficiency 30 - 100 ng/mL (75 - 250 nmol/L) Toxicity >100 ng/mL (>250 nmol/L) Performed By: #### L 506.1000, L100.0100, L500.4100, L500.4050 #### [facility] [address] [place], [address] Knee 1 or 2 Viewson 09-18-19 25 Knee 1 or 2 Views [facility] [address] [place] [address] Knee 1 or 2 Views MR#: [id number] Acct: [id number] Name: JENNIFFER CASTRO Sara Rep #: [id number] : 1950 F 74 From: Ktzara Cerrato DO PCP: Dr. Fish Ortiz DO Status: DEP AMB Study: Knee 1 or 2 Views Date of Exam: 09/18/24 Exam# [id number] Ordering Dr: Stanislav Watts DO [id number] INDICATION: pain EXAMINATION/TECHNIQUE: X-RAY - RIGHT XR Knee 2 VIEWS COMPARISON: FINDINGS: SOFT TISSUES: No soft tissue swelling or gas. No radiopaque foreign body. Chondrocalcinosis of the menisci. BONES/JOINTS: No acute fracture or subluxation.. Normal alignment. Preservation of the joint space.. No sclerotic or destructive changes observed. RAD/Knee 1 or 2 Views IMPRESSION: No acute bony injury. Electronically Signed: Kt Cerrato DO at 18:28 EST Reading Location ID and State: [facility] / [place] Tel [phone], Service support , CC: Dr. Stanislav Watts DO; Dr. Fish Ortiz DO Sales Engineer: Signed Normal [facility] Orthopedic Visit Reporton Orthopedic Visit Report [facility] [address] [place] [address] OFFICE VISIT Date of Service: 09/18/24 MR#: [id number] Acct: [id number] Name: JENNIFFER CASTRO Rep #: [id number] : 1950 Provider: Dr. Stanislav saenz DO Age/Sex: 74/F Location: [facility] [place] Status: Signed Intake Vital Signs 08/31/24 18:24 09/18/24 08:42 Height 4 ft 11 in 4 ft 11 in Weight: 122 lb BMI 24.6 Intake Visit Reasons: RIGHT KNEE Accompanied by: Is patient in pain?: Yes Pain scale (1-10): 5 Allergies No Known Allergies Allergy (Verified 09/18/24 08:43) Medications ???Medication ???Instructions ???Recorded ???Confirmed ???Type cholecalciferol (vitamin D3) 25 25 mcg PO DAILY 08/31/24 09/18/24 History mcg (1,000 unit) capsule (Vitamin D3) danazol 100 mg capsule 100 mg PO DAILY 08/31/24 09/18/24 History hydrochlorothiazide 25 mg tablet 25 mg PO DAILY 08/31/24 09/18/24 History hydrocodone-acetaminophen 5-325mg 1 tab PO Q6H PRN PRN Pain 3 days 08/31/24 09/18/24 Rx 5mg-325mg #10 TABLETS multivitamin (Daily Multi-Vitamin 1 tab PO DAILY 08/31/24 09/18/24 History tablet) Have you fallen in the past year?: Yes PFSH Medical History Hereditary angioedema Surgical History (Updated 08/31/24 @ 23:[address] Arben Hamilton, ) Hx of endoscopy Hx of tubal ligation Social History (Updated 09/18/24 @ 09:12 by Yulisa Bledsoe) household members: spouse Smoking Status: Never smoker HPI RIGHT KNEE Details: This documentation accurately reflects the service provided and the decisions made by me, Dr. Stanislav Watts DO 09/18/24 9916. Part of today???s visit was documented by [ ], acting as scribe. JENNIFFER CASTRO is a 74 year old F new patient for right knee pain. Patient notes that she has had pain about a week prior to [place] and she felt like a tendon was flipping over a bone. She notes that she had crunching at that time. Patient went to the ER due to a locking in her knee. She then saw her PCP for a followup who ordered an MRI and had her MRI on 09/03/24. Patient notes that she was getting out of bed on 09/12/24 and her knee gave out. Patient notes that she then fell on 09/14/24 because her crutches slipped, and she got a black eye. Patient notes that her pain is over her medial knee. She has swelling into her right leg. Patient states that she no longer has the popping and clicking but believes it is from the swelling. She denies any instability at this time. She continues to use crutches. Patient denies any injections, bracing or physical therapy. She states that she is taking ibuprofen for pain. She was given norco by the ER doctor which she has used as well. She states that she also flared up her sciatica as well which is better now. Patient denies smoking or drug use ER visit 08/31/2024: According to ER record Patient states that she had some pain in her knee earlier this week. Patient states she felt something moving in her knee. Patient states it moved back and her pain resolved. Patient states that tonight she bent down to change the qing litter and her pain began again. She was given a prescription for Waldorf and a walker . Ortho Exam General General: Yes no acute distress and No well groomed (Strong odor of possible animal such as cat) Neurologic: Yes alert and Yes oriented x3 Psychologic: Yes reasonable and appropriate Right Knee Skin/Wound: No erythema, No ecchymosis and Yes swelling Homans Sign: No Knee ROM: No ROM-Extension -20 to 0 (3) and Yes ROM-Flexion 0-140 (120) Examination: No Med jt line tenderness, No Lat jt line tenderness, No Pain with flexion, No Pain with extention and Yes Urmila's Test Stability: NML: Anterior Drawer, NML: Posterior Drawer, NML: Valgus 0, NML: Valgus 30, NML: Varus 0 and NML: Varus 30 Patella Translation: 1 KNEE: no collateral instability mild edema in lower leg Left Knee Patella Translation: 1 Supplemental Info 09/18/2024 notch view and sunrise right knee: These views were absent on previous study they do show more spurring of the medial femoral condyle on the notch view low-grade chondrocalcinosis 09/03/2024 MRI on disc [place] [facility]: Chondral thinning and fissuring of the weightbearing medial femoral compartment grade 1 chondral fraying of the lateral compartment. Pseudo extrusion of the medial meniscus with complex tear of the anterior body to posterior root. Chronic tear anterior horn body of lateral meniscus. Capsulitis. Edema deep to the iliotibial band. 08/31/2024 x-ray right knee 3 view: There is mild narrowing of the medial compartment on both AP and flexion view early spurring medial tibial plateau. Coding Level of Care Code Off vis,new,level 3 Diagnoses Complex tear of m (more content not included)... Normal [facility] Emergency Department Summary on 08-31-2024 Emergency Department Summary [facility] Medical Records Department [address] [place] [address] Emergency Department Summary 08/31/24 MR#: [id number] Acct: [id number] Name: JENNIFFER CASTRO Rep #: [id number] : 1950 74 From: Arben Hamilton DO PCP: Dr. Fish Ortiz DO Status:DEP ER Location: ED HPI History of Present Illness HPI Narrative: Patient presents with right knee pain that became worse tonight. Patient states that she had some pain in her knee earlier this week. Patient states she felt something moving in her knee. Patient states it moved back and her pain resolved. Patient states that tonight she bent down to change the qing litter and her pain began again. Patient describes it as burning. Patient states it is over the anterior medial aspect of the right knee. Patient states the pain is worse with movement and weightbearing. Patient denies any paresthesias or weakness. Patient denies any other injuries. Chief Complaint: Lower Extremity Injury Onset/Context/Timing Onset: Today Context: Sudden Onset Timing: Continuous Quality of Pain: Burning Location: Right knee Worsened by: Weightbearing, movement Relieved by: Nothing Associated Symptoms Associated Symptoms: Negative for Parasthesia or Weakness [facility] Medical History (Updated 08/31/24 @ 23:[address] Arben Hamilton, ) Hereditary angioedema Home Medications ???Medication ???Instructions ???Recorded ???Last Taken ???Type cholecalciferol (vitamin D3) 25 25 mcg PO DAILY 08/31/24 Unknown History mcg (1,000 unit) capsule (Vitamin D3) danazol 100 mg capsule 100 mg PO DAILY 08/31/24 Unknown History hydrochlorothiazide 25 mg tablet 25 mg PO DAILY 08/31/24 Unknown History hydrocodone-acetaminophen 5-325mg 1 tab PO Q6H PRN PRN Pain 3 days 08/31/24 Unknown Rx 5mg-325mg #10 TABLETS multivitamin (Daily Multi-Vitamin 1 tab PO DAILY 08/31/24 Unknown History tablet) Allergy/AdvReac Type Severity Reaction Status Date / Time No Known Allergies Allergy Verified 08/31/24 18:24 Surgical History (Updated 08/31/24 @ 23:[address] Arben Hamilton DO) Hx of endoscopy Hx of tubal ligation Social History Smoking Status: Never smoker ROS ROS ED Constitutional Constitutional ED: Denies chills or fever(s) Eyes Eyes: Denies blurry vision or change in vision ENT ENT ED: Denies rhinorrhea or sore throat Cardiovascular Cardiovascular: Denies chest pain or palpitations Respiratory/Chest Respiratory/Chest: Denies cough or dyspnea Gastrointestinal Gastrointestinal: Denies nausea or vomiting Genitourinary Genitourinary ED: Denies dysuria or hematuria Musculoskeletal Musculoskeletal: Denies back pain or neck pain Integumentary Denies abscess or rash Neurologic Neurologic: Denies headache(s) or weakness Allergic/Immunologic Allergic/Immunologic ED: Denies mouth swelling or urticaria EXAM Physical Exam Const Vital Signs: 08/31/24 18:24 Temperature 98.5 F Temperature Source Oral Pulse Rate 83 Respiratory Rate 16 Blood Pressure 161/92 H Blood Pressure Mean 115 Pulse Ox 98 Oxygen Delivery Method Room Air Positive well nourished and well developed General Appearance ED: well developed and NAD HEENT Reports moist mucous membranes Neck full ROM and supple Extremity Extremity Narrative: There is tenderness over the anterior medial aspect of the right knee. There is no bony crepitance or step-off. There is no effusion noted. Range of motion was slightly limited in all motions of the right knee secondary to pain. There is some mild pain with valgus testing but there is no laxity appreciated. There is some mild pain over the medial joint line of the right knee with Urmila testing. Strength is 5/5 bilaterally in the lower extremities. Extensor mechanism is intact. There are no sensory deficits noted. Pedal pulses are equal bilaterally. Neuro oriented x3, CN's II-XII intact bilaterally, moves all extremities and no sensory deficits noted Sensorium / Orientation: alert Motor Exam: strength 5/5 throughout Psych mental status grossly normal MDM MDM MDM Narrative Medical decision making narrative: Differential diagnose includes fracture, sprain, meniscus injury, and contusion. X-rays of the right knee will be obtained to assess for fracture and joint effusion. Radiography Diagnostic Testing: Clinical Impression(s) from Imaging Studies Knee X-Ray 08/31/24 20:00 IMPRESSION: Negative right knee x-rays. Electronically Signed: Erick Pitts MD at 22:44 EST , X-rays of the right knee were obtained. There are 3 views. On my independent interpretation, t (more content not included)... Normal [facility] Knee 3 Viewson 08-31-2024 Knee 3 Views [facility] Imaging Services [address] [place], [place] [address] Knee 3 Views MR#: [id number] Acct: [id number] Name: JENNIFFER CASTRO Rep #: [id number] : 1950 F 74 From: Erick Pitts MD PCP: Dr. Fish Ortiz DO Status: REG ER Study: Knee 3 Views Date of Exam: 08/31/24 Exam# [id number] Ordering Dr: Arben Hamilton DO [id number] EXAM: XR RIGHT KNEE, 3 VIEWS CLINICAL INDICATION: injury TECHNIQUE: Three views of the right knee. COMPARISON: No relevant prior studies available. FINDINGS: BONES/JOINTS: Unremarkable. No acute fracture. No subluxation. Normal alignment. Preservation of the joint space. No sclerotic or destructive changes observed. SOFT TISSUES: Unremarkable. No soft tissue swelling or gas. No radiopaque foreign body. RAD/Knee 3 Views IMPRESSION: Negative right knee x-rays. Electronically Signed: Erick Pitts MD at 22:44 EST , CC: Dr. Arben Hamilton DO; Dr. Fish Ortiz DO Sales Engineer: Signed Normal [facility] Encounters Encounter Date Encounter Type Care Provider Facility Start: 05-01-2025 ambulatory [facility] Facility: [facility] Start: 01-08-2025 End: 01-08-2025 ambulatory [facility] Start: 10-25-2024 End: 10-25-2024 ambulatory [facility] Facility:[facility] Start: 10-14-2024 End: 10-14-2024 ambulatory [facility] Start: 10-01-2024 End: 10-01-2024 ambulatory [facility] Facility:[facility] Start: 09-24-2024 End: 09-24-2024 ambulatory [facility] Facility:[facility] Start: 09-18-2024 End: 09-18-2024 ambulatory [facility] Start: 08-31-2024 End: 09-01-2024 Emergency department patient visit [facility] Facility:[facility] Payers Date Payer Category Payer Medicare [id number] 2024 Self-pay 2024 Unknown [id number] Unknown [id number] 2.16.8 [id number] Unknown [id number] 2.16.8 [id number] Unknown [id number] 2.16.8 [id number] Unknown [id number] 2.16.8 [id number] Unknown [id number] 2.16.8 [id number] Unknown [id number] 2.16.8 [id number] Unknown [id number] 2.16.8 [id number] Unknown [id number] 2.16.8 [id number] Unknown [id number] 2.16.8 [id number] Unknown [id number] 2.16.8 [id number] Clinical Note 10-01-2024 Note Date & Type Note Facility 10-01-2024 Note [facility] Medical Records Department [address] [place] [address] History Physical Exam 10/01/24 0951 MR#: [id number] Acct: [id number] Name: JENNIFFER CASTRO Rep #: [id number] : 1950 74 From: Stanislav Watts DO PCP: Dr. Fish Ortiz DO [place] [facility] [place] [address] History and Physical Date of Admission: 10/01/24 [facility] [address] [place] [address] OFFICE VISIT Date of Service: 09/18/24 MR#: [id number] Acct: [id number] Name: JENNIFFER CASTRO Rep #: [id number] : 1950 Provider: Dr. Stanislav Watts DO Age/Sex: 74/F Location: [facility] [place] Status: Signed Intake Vital Signs 08/31/2418:24 09/18/2507:42 Height 4 ft 11 in 4 ft 11 in Weight: 122 lb BMI 24.6 Intake Visit Reasons: RIGHT KNEE Accompanied by: Is patient in pain?: Yes Pain scale (1-10): 5 Allergies No Known Allergies Allergy (Verified 09/18/24 08:43) Medications ???Medication ???Instructions ???Recorded ???Confirmed ???Type cholecalciferol (vitamin D3) 25 25 mcg PO DAILY 08/31/24 09/18/24 History mcg (1,000 unit) capsule (Vitamin D3) danazol 100 mg capsule 100 mg PO DAILY 08/31/24 09/18/24 History hydrochlorothiazide 25 mg tablet 25 mg PO DAILY 08/31/24 09/18/24 History hydrocodone-acetaminophen 5-325mg 1 tab PO Q6H PRN PRN Pain 3 days 08/31/24 09/18/24 Rx 5mg-325mg #10 TABLETS multivitamin (Daily Multi-Vitamin 1 tab PO DAILY 08/31/24 09/18/24 History tablet) Have you fallen in the past year?: Yes PFSH Medical History Hereditary angioedema Surgical History (Updated 08/31/24 @ 23:[address] Arben Hamilton, DO) Hx of endoscopy Hx of tubal ligation Social History (Updated 09/18/24 @ 09:12 by Yulisa Bledsoe) household members: spouse Smoking Status: Never smoker HPI RIGHT KNEE Details: This documentation accurately reflects the service provided and the decisions made by me, Dr. Stanislav Watts DO 09/18/24 0746. Part of today???s visit was documented by [ ], acting as scribe. JENNIFFER CASTRO is a 74 year old F new patient for right knee pain. Patient notes that she has had pain about a week prior to [place] and she felt like a tendon was flipping over a bone. She notes that she had crunching at that time. Patient went to the ER due to a locking in her knee. She then saw her PCP for a followup who ordered an MRI and had her MRI on 09/03/24. Patient notes that she was getting out of bed on 09/12/24 and her knee gave out. Patient notes that she then fell on 09/14/24 because her crutches slipped, and she got a black eye. Patient notes that her pain is over her medial knee. She has swelling into her right leg. Patient states that she no longer has the popping and clicking but believes it is from the swelling. She denies any instability at this time. She continues to use crutches. Patient denies any injections, bracing or physical therapy. She states that she is taking ibuprofen for pain. She was given norco by the ER doctor which she has used as well. She states that she also flared up her sciatica as well which is better now. Patient denies smoking or drug use ER visit 08/31/2024: According to ER record Patient states that she had some pain in her knee earlier this week. Patient states she felt something moving in her knee. Patient states it moved back and her pain resolved. Patient states that tonight she bent down to change the qing litter and her pain began again. She was given a prescription for Waldorf and a walker . Ortho Exam General General: Yes no acute distress and No well groomed (Strong odor of possible animal such as cat) Neurologic: Yes alert and Yes oriented x3 Psychologic: Yes reasonable and appropriate Right Knee Skin/Wound: No erythema, No ecchymosis and Yes swelling Homans Sign: No Knee ROM: No ROM-Extension -20 to 0 (3) and Yes ROM-Flexion 0-140 (120) Examination: No Med jt line tenderness, No Lat jt line tenderness, No Pain with flexion, No Pain with extention and Yes Urmila's Test Stability: NML: Anterior Drawer, NML: Posterior Drawer, NML: Valgus 0, NML: Valgus 30, NML: Varus 0 and NML: Varus 30 Patella Translation: 1 KNEE: no collateral instability mild edema in lower leg Left Knee Patella Translation: 1 Constitutional: Well-developed; well-nourished; in no acute distress Eyes: No jaundice ENT: Nares patent; no obvious deformity Cardiovascular: No cyanosis; clubbing; or edema Lymphatic: No adenopathy in area of examination Skin: No rashes or lesions in the area of examination (more content not included)... [facility] Summary Purpose Family History No Family History Records Found Advance Directives No Advanced Directives Records Found Additional Source Comments INFORMATION SOURCE (unrecogn ized section and content) DATE CREATED AUTHOR 04/27/2025 [facility] FOR RECORDS PERTAINING TO PATIENTS WHO ARE OR HAVE BEEN ENROLLED IN A CHEMICAL DEPENDENCY/SUBSTANCEABUSE PROGRAM, SOME INFORMATION MAY BE OMITTED. This clinical summary was aggregated from multiple sources. Caution should be exercised in using it in the provision of clinical care. This summary normalizes information from multiple sources, and as a consequence, information in this document may materially change the coding, format and clinical context of patient data. In addition, data may be omitted in some cases. CLINICAL DECISIONS SHOULD BE BASED ON THE PRIMARY CLINICAL RECORDS. [employer] provides no warranty or guarantee of the accuracy or completeness of information in this document.
== END | disposition home or self-care (01) ==
LOC: OPBI 06:56
PROVIDERS: PCP Family Medicine; Referring Provider Family Medicine; Visit Provider Family Medicine
DX: Z12.31 Encounter for screening mammogram for malignant neoplasm of breast (principal)
CPT/HCPCS: 77063; 77067